=== PATIENT | female | born 1975 | race Caucasian/White ===

== ENCOUNTER → 2017-02-03 | Outpatient (CLI) | payer OTHER ==
--- NOTE | 2017-02-03 15:45 | RAD ---
Focused sonographic evaluation of the palpable abnormality overlying the left hip 02/03/2017 Indication: Palpable abnormality overlying left hip Discussion: Focus ultrasound evaluation of the soft tissues overlying the left lateral hip in the area of palpable abnormality as indicated by the patient was performed. Static images were submitted to PACS. No focal abnormality is detected. No mass or abnormal fluid collection is seen. No other focal sonographic abnormality was identified. Impression: No sonographic abnormality is identified
== END | disposition home or self-care (01) ==
LOC: US 14:54
PROVIDERS: ATTEND Surgery
DX: D17.79 Benign lipomatous neoplasm of other sites (principal)
CPT/HCPCS: 76882

== ENCOUNTER → 2017-02-15 | Outpatient (CLI) | payer OTHER ==
[~2017-02-15] MED LIST: CYCL10TA2 PO; GADOBUTROL 10 MMOL/10 ML VIAL IV ONE; LEVO137T2 PO; PANT40TA3 PO
--- NOTE | 2017-02-15 14:23 | KCIC ---
MR of the left proximal thigh with and without contrast HISTORY: Tender left thigh mass for years. TECHNIQUE: Surface markers placed at the area of concern at the lateral proximal thigh. Routine multiplanar sequences were obtained through the area of interest. Images obtained before and after intravenous contrast. FINDINGS: There is no evidence of a soft tissue mass, fluid collection, soft tissue edema or abnormal contrast enhancement. No evidence of an encapsulated subcutaneous lipoma. Muscle tissue is intact. The visualized bones are intact. No significant hip joint effusion. Mild signal within the left gluteus minimus tendon attachment, with minimal surrounding fluid signal, compatible with tendinosis. No high-grade tear. The gluteus minimus tendon is intact, but demonstrates minimal surrounding fluid as well. Hamstring tendinosis at the attachment. IMPRESSION: 1. No evidence of soft tissue mass or fluid collection at the area of concern, at the lateral proximal thigh. 2. Gluteus minimus and medius tendinosis. Electronically signed by: Bunny Avila MD (02/15/2017 2:19 PM) [facility] [place]-KCIC2
== END | disposition home or self-care (01) ==
LOC: KCIC MRI 12:20
PROVIDERS: ATTEND Surgery
DX: M76.02 Gluteal tendinitis, left hip (principal)
CPT/HCPCS: 73720; A9585

== ENCOUNTER → 2017-04-22 | Outpatient (CLI) | payer OTHER | END | disposition home or self-care (01) | LOC: MAMMO 08:27 | DX: Z12.31 Encounter for screening mammogram for malignant neoplasm of breast (principal) | CPT/HCPCS: 77063; 77067 ==

== ENCOUNTER 2017-05-30 07:34 | Emergency (ER) | payer OTHER ==
[2017-05-30] MEDS: FLUORESCEIN OPHTH TEST STRIP. OD (08:38)
[2017-05-30] MEDS: TETRACAINE 0.5% OPHTH SOLUTION 4ML BOTTLE. OD (08:38)
== END 2017-05-30 09:12 | disposition home or self-care (01) ==
LOC: ER 07:34
DX: H10.9 Unspecified conjunctivitis (principal); Z88.5 Allergy status to narcotic agent; Z88.8 Allergy status to other drugs, medicaments and biological substances; Z91.041 Radiographic dye allergy status
CPT/HCPCS: 99283

== ENCOUNTER 2018-12-17 08:58 | Emergency (ER) | payer OTHER ==
[~2018-12-17] VITALS: Ht 162.6 cm; Wt 81.6 kg
[~2018-12-17 08:58] MED LIST changes: +ERYT1OIN6 OP; -GADOBUTROL 10 MMOL/10 ML VIAL IV ONE; -PANT40TA3 PO; +PANT40TA77 PO; +PROP10DR3 EACHEYE
[2018-12-17] MEDS ORDERED: HYDR-3164 PO (09:13)
[2018-12-17] MEDS ORDERED: ORPH100T PO (09:13)
--- NOTE | 2018-12-17 09:13 | PHYS DOC ---
Past Medical History Past Medical History: GERD Past Surgical History: , Hysterectomy, Oophorectomy Additional Past Surgical Histo: thyroid Alcohol Use: None Drug Use: None Adult General Chief Complaint Chief Complaint: LOWER BACK PAIN OR INJURY HPI HPI Patient is a 43 year old female who presents with her lower back pain that started this morning. 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 Patient denies injury or doing anything abnormal yesterday while at work. Patient rates her pain a 6 out of 10 and is a cramping tightness . Patient states she took Aleve at 5:00 this morning. Review of Systems Review of Systems Musculoskeletal: back pain or joint pain [] All other systems were reviewed and found to be within normal limits, except as documented in this note. Allergies Allergies Allergies Coded Allergies Type Severity Reaction Last Updated Verified codeine Allergy Intermediate 02/15/17 Yes povidone-iodine Allergy Intermediate 02/15/17 Yes soap Allergy Intermediate 02/15/17 Yes Physical Exam Physical Exam Constitutional: Well developed, well nourished, no acute distress, non-toxic appearance. [] Neck: Normal range of motion, no tenderness, supple, no stridor. [] Skin: Warm, dry, no erythema, no rash. [] Back: No tenderness, no CVA tenderness. [] Extremities: No tenderness, no cyanosis, no clubbing, ROM intact, no edema. [] Neurologic: Alert and oriented X 3, normal motor function, normal sensory function, no focal deficits noted. [] Psychologic: Affect normal, judgement normal, mood normal. Normal Physical Exam [] EKG EKG [] Radiology/Procedures Radiology/Procedures [] Course & Med Decision Making Course & Med Decision Making Alert and oriented. Patient is ambulatory with a steady gait. Patient is to bend over as she walks due to pain but she can stand straight up. Denies any numbness or tingling. There is no tenderness to her lower back worse focal spiny tenderness with palpation. No swelling or deformity or bruising to her back. Patient denies any loss of bowel or bladder. Patient denies any radiation of the pain. Patient states she does have sciatica on the right side but has not is bothering her today. Speaks in full clear sentences. Patient is given IM orphenadrine, Toradol and [place]. I will send her home with orphenadrine and [place]. Patient follow-up with primary care provider. Allan Disclaimer Allan Disclaimer This electronic medical record was generated, in whole or in part, using a voice recognition dictation system. Departure Departure Impression: Primary Impression: Low back pain Disposition: HOME, SELF-CARE Condition: STABLE Referrals: BAMBI UMANA MD (PCP) Patient Instructions: Back Pain, Adult, Low Back Strain with Rehab-SportsMed Additional Instructions: Take medications as prescribed. Follow up with primary care provider. Use heating pad and or ice. Scripts Orphenadrine Citrate (ORPHENADRINE CITRATE) 100 Mg Tablet.er 1 TAB PO BID, #30 TAB Prov: ANTONIO SNIDER APRN 12/17/18 Hydrocodone/Apap 5-325 (NORCO 5-325 TABLET) 1 Each Tablet 1 TAB PO PRN Q6HRS PRN for PAIN, #15 TAB 0 Refills Prov: ANTONIO SNIDER APRN 12/17/18 Problem Qualifiers Primary Impression: Low back pain Chronicity: acute Back pain laterality: bilateral Sciatica presence: without sciatica Qualified Codes: M54.5 - Low back pain ANTONIO SNIDER APRN Dec 17, 2018 09:13
[2018-12-17] MEDS ORDERED: KETOROLAC 60 MG/2 ML VIAL. IM ONE (09:15)
[2018-12-17] MEDS ORDERED: HYDROcodone/APAP 5/325MG 1 TAB TABLET PO ONE (09:15)
[2018-12-17] MEDS ORDERED: ORPHENADRINE CITRATE 60 MG/2 ML VIAL. IM ONE (09:15)
[2018-12-17 09:33] VITALS: BP 166/103
== END 2018-12-17 09:33 | disposition home or self-care (01) ==
LOC: ER 08:58
DX: M54.5 Low back pain (principal); K21.9 Gastro-esophageal reflux disease without esophagitis; Z90.710 Acquired absence of both cervix and uterus; Z90.722 Acquired absence of ovaries, bilateral; Z88.5 Allergy status to narcotic agent; Z88.8 Allergy status to other drugs, medicaments and biological substances
CPT/HCPCS: 96372; 99284; J1885; J2360

== ENCOUNTER → 2019-02-01 | Outpatient (CLI) | payer OTHER ==
[~2019-02-01] MED LIST changes: +HYDR-3164 PO; +ORPH100T PO
--- NOTE | 2019-02-01 17:08 | KCIC ---
MR of the right shoulder HISTORY: Right shoulder pain, chronic. TECHNIQUE: Routine multiplanar sequences are obtained. FINDINGS: The acromioclavicular joint is mildly degenerative. Mild fluid within the acromioclavicular joint. Rotator cuff tendinosis. Small linear defect within the supraspinatus tendon insertion compatible with a small concealed intrasubstance tear. No surface rupture or retraction of the rotator cuff. Mild subdeltoid bursal fluid. No significant glenohumeral joint effusion. Small tear of the posterosuperior labrum. Biceps tendon intact other than mild tendinosis.. No acute fracture. No aggressive bone destruction. No acute soft tissue abnormality. IMPRESSION: 1. Rotator cuff tendinosis. 2. Mild acromioclavicular joint degenerative disease with mild undersurface mass effect. 3. Posterosuperior labral tear. Electronically signed by: Bunny Avila MD (02/01/2019 5:05 PM) [facility]-KCIC2
== END | disposition home or self-care (01) ==
LOC: KCIC MRI 15:06
PROVIDERS: ATTEND Orthopaedic Surgery
DX: S43.491A Other sprain of right shoulder joint, initial encounter (principal); X58.XXXA Exposure to other specified factors, initial encounter; Y93.89 Activity, other specified; Y92.89 Other specified places as the place of occurrence of the external cause; Y99.8 Other external cause status; Z90.710 Acquired absence of both cervix and uterus; Z90.89 Acquired absence of other organs
CPT/HCPCS: 73221

== ENCOUNTER 2019-03-02 06:11 | Day surgery (SDC) | payer OTHER ==
[~2019-03-02] VITALS: Ht 162.6 cm; Wt 83.5 kg
[~2019-03-02 06:11] MED LIST changes: +AMOX500C PO; +PANT20TA2 PO
[2019-03-02] MEDS ORDERED: EPINEPHrine VIAL 30 MG/30 ML VIAL ONE (06:57)
[2019-03-02] MEDS ORDERED: LIDOCAINE 1% PF 2 ML VIAL. ID PRN (07:00)
[2019-03-02] MEDS ORDERED: fentaNYL PF VIAL 100 MCG/2 ML VIAL IV PRN (07:00)
[2019-03-02] MEDS ORDERED: IV RINGERS,LACTATED 1000ML 1,000 ML IV SCH (07:00)
[2019-03-02] MEDS ORDERED: ONDANSETRON PF 4 MG/2 ML VIAL. IV PRN (07:00)
[2019-03-02] MEDS ORDERED: HYDROmorphone 2 MG/ML VIAL IV PRN (07:00)
[2019-03-02] MEDS ORDERED: PROCHLORPERAZINE 10 MG/2 ML VIAL. IV PRN (07:00)
[2019-03-02] MEDS ORDERED: ROPIVacaine 0.5% PF 20 ML VIAL. ONE (07:03)
[2019-03-02] MEDS ORDERED: MIDAZOLAM HCL/PF 2 MG/2 ML VIAL. ONE (07:05)
[2019-03-02] MEDS ORDERED: fentaNYL PF VIAL 100 MCG/2 ML VIAL ONE ×2 (07:06→09:27)
[2019-03-02] MEDS ORDERED: PROPOFOL 20 ML IV ONE (07:22)
[2019-03-02] MEDS ORDERED: PHENYLEPHRINE in 0.9% NACL PF 1 MG/10 ML SYRINGE. IV ONE (07:22)
[2019-03-02] MEDS ORDERED: ONDANSETRON PF 4 MG/2 ML VIAL. ONE (07:22)
[2019-03-02] MEDS ORDERED: LIDOCAINE 2% PF 5 ML VIAL. ONE (07:22)
[2019-03-02] MEDS ORDERED: GLYCOPYRROLATE 1 MG/5 ML VIAL. ONE ×2 (07:22→08:36)
[2019-03-02] MEDS ORDERED: DEXAMETHASONE SOD PHOS 4 MG/ML VIAL ONE (07:22)
[2019-03-02] MEDS ORDERED: ROCURONIUM 50 MG/5 ML VIAL. ONE (07:26)
[2019-03-02] MEDS ORDERED: ceFAZolin 2GM PREMIX 2 GM/50 ML BAG IV ONE (08:00)
[2019-03-02] MEDS ORDERED: KETOROLAC 30 MG/ML VIAL. ONE (08:35)
[2019-03-02] MEDS ORDERED: NEOSTIGMINE METHYLSULFATE 5 MG/5 ML SYRINGE. ONE (08:37)
[2019-03-02] MEDS ORDERED: SEVOFLURANE 61 TO 120 MINUTES. IH ONE (08:39)
[2019-03-02] MEDS ORDERED: BUPIVACAINE-EPI 0.5%-1:200000 MPF 30 ML VIAL. ONE (08:55)
[2019-03-02] MEDS ORDERED: OXYC1TAB22 PO (09:28)
--- NOTE | 2019-03-02 09:30 | DISCH ---
DISCHARGE INSTRUCTIONS Condition on Discharge Condition on Discharge: Stable Activity After Discharge Activity Instructions for Disc: Other, see below (sling for comfort may use arm as symptomatically tolerated, avoid laying on the shoulder due to symptomatic aggravation) Diet after Discharge Diet after Discharge: Regular Wound Incision Care Wound/Incision Care: Change dressing (remove dressing in 2 days may then shower no soaking until sutures removed) Community/Resources/Services Services at Discharge: PT EVALUATE & TREAT (we will hold off on physical therapy formally until her postop evaluation, gentle use and stretching of her arm in the meantime as I discussed with her ) Contacting the after DC Call your doctor for: Concerns you may have Follow-Up Follow up with: Dr. Rouse 10 days AUREA ROUSE MD Mar 02, 2019 09:30
[2019-03-02] MEDS: fentaNYL PF VIAL 100 MCG/2 ML VIAL IV PRN ×2 (09:32→09:44)
--- NOTE | 2019-03-02 09:41 | PDOC4 ---
Operative Note Operative Note Date of surgery: 03/02/2019 Preoperative diagnosis: Refractory acromioclavicular joint pain right shoulder recurrent postinjection Postoperative diagnosis: Same plus severe bursal irritation in the subacromial area and superior labral fraying with a partial thickness subscapularis tear superiorly Operative procedure: Right shoulder arthroscopy distal clavicle excision subacromial decompression and debridement of superior labral fraying and part ial-thickness tear subscapularis Surgeon: Padma Assist: Kory Almanzar certified surgical manager Anesthesia: Gen. plus scalene block Estimated blood loss: 50 mL Complications: None Operative indications: Please see my preoperative clinic note for detailed operative indications and note that Kalyn has undergone multiple injections for right acromioclavicular joint pain and degenerative change with recurrence each time and lesser and lesser timeframes where the injection is effective. I had gone over with her the more definitive approach of distal clavicle excision and the initial pain that is expected with that procedure the possibility of some ongoing pain for several weeks until it generally resolves possibility of incomplete relief of her pain nerve or blood vessel damage infection medical or other anesthetic complications among others and the fact that we would certainly address any other pathological conditions at the time of arthroscopy she agrees to proceed with surgical evaluation and treatment Operative text: Patient was identified procedure verified patient placed in the supine position on the operating table. After adequate amounts of general anesthesia plus a pre-existing scalene block were obtained, patient was placed in the decubitus position right side up all bony prominences were well-padded and the right shoulder was examined under anesthesia found to have full range of motion and no instability. The right shoulder was then prepped and draped in standard sterile fashion placed in the arthroscopic arm gamez with a total of 10 pounds of traction and after timeout was performed patient procedure identified and verified a standard posterior portal was established an anterior portal established using spinal needle localization and the shoulder joint was systematically examined. She was noted to have superior labral fraying constituting a type I SLAP tear which was debrided back to stable tissue. There was no separation of the biceps and superior labral insertion. She did have a partial-thickness tear of the subscapularis superiorly which was trimmed back to stable tissue and involved proximally 10-15% of the superior insertion there was no biceps instability the remainder of the rotator cuff insertion was intact she had a normal bare area of the humerus and had a sub-labral foramen normal anatomy with normal capsule ligament structures noted. Subacromial space was then entered she was found to have significant irritation of her bursal large anterior acromial spur which was trimmed back to a type I acromion using cutting block technique. Distal clavicle was narrowed and degenerative and was excised 1 cm to allow an adequate joint space surrounding joint capsule was preserved bony fragments were removed underlying rotator cuff showed some mild irritation but no evidence of any significant defect. The shoulder was drained of arthroscopic fluid portals closed with nylon suture sterile dressings were applied she was placed in a sling returned to recovery room in stable condition having tolerated procedure well. Kory Almanzar certified surgical recovery assistant was present for the procedure assisted in the prepping draping positioning as well as skin closure AUREA MATHEW MD Mar 02, 2019 09:41
[2019-03-02] MEDS ORDERED: MORPHINE SULFATE 2 MG/ML VIAL. ONE (09:45)
[2019-03-02] MEDS: MORPHINE SULFATE 2 MG/ML VIAL. IV PRN ×2 (09:47→09:59)
[2019-03-02] MEDS ORDERED: oxyCODONE/APAP 10/325 1 TAB TABLET PO ONE (10:00)
[2019-03-02 10:05] VITALS: BP 116/63
== END 2019-03-02 11:13 | disposition home or self-care (01) ==
LOC: SURG 06:11
PROVIDERS: ATTEND Orthopaedic Surgery
DX: S46.011A Strain of muscle(s) and tendon(s) of the rotator cuff of right shoulder, initial encounter (principal); M25.511 Pain in right shoulder; E89.0 Postprocedural hypothyroidism; K21.9 Gastro-esophageal reflux disease without esophagitis; Z98.890 Other specified postprocedural states; Z88.6 Allergy status to analgesic agent; Z90.710 Acquired absence of both cervix and uterus; Z79.2 Long term (current) use of antibiotics; Z91.041 Radiographic dye allergy status; Z85.850 Personal history of malignant neoplasm of thyroid; Z91.048 Other nonmedicinal substance allergy status; X58.XXXA Exposure to other specified factors, initial encounter; Y93.89 Activity, other specified; Y92.89 Other specified places as the place of occurrence of the external cause; Y99.8 Other external cause status
CPT/HCPCS: 29823; 29824; 64415; A7015; C1713; J0171; J0696; J1100; J1885; J2001; J2250; J2270; J2405; J2704; J2710; J2795; J3010; J3490; J2370

== ENCOUNTER 2019-06-13 10:36 | Emergency (ER) | payer OTHER ==
[~2019-06-13] VITALS: Ht 162.6 cm; Wt 84.0 kg
[~2019-06-13 10:36] MED LIST changes: +OXYC1TAB22 PO
--- NOTE | 2019-06-13 11:25 | EKG ---
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
[2019-06-13] MEDS ORDERED: KETOROLAC 30 MG/ML VIAL. IVP ONE (11:30)
[2019-06-13 11:35] LABS: BASO # 0.1 x10^3/uL (0.0-0.2); BASO % 1 % (0-3); EOS % 0 % (0-3); HEMATOCRIT 47.5 % (36.0-47.0); HEMOGLOBIN 16.2 g/dL (12.0-15.5); LYMPH # 2.1 x10^3/uL (1.0-4.8); LYMPH % 21 % (24-48); MEAN CORPUSCULAR HEMOGLOBIN 33 pg (25-35); MEAN CORPUSCULAR HGB CONC 34 g/dL (31-37); MEAN CORPUSCULAR VOLUME 96 fL (79-100); MONO # 0.6 x10^3/uL (0.0-1.1); MONO % 6 % (0-9); NEUT % 72 % (31-73); PLATELET COUNT 400 x10^3/uL (140-400); RED BLOOD COUNT 4.97 x10^6/uL (3.50-5.40); RED CELL DISTRIBUTION WIDTH 12.8 % (11.5-14.5); WHITE BLOOD COUNT 9.7 x10^3/uL (4.0-11.0)
--- NOTE | 2019-06-13 11:35 | PHYS DOC ---
Past Medical History Past Medical History: GERD, Sciatica Additional Past Medical Histor: THYROID CANCER Past Surgical History: , Hysterectomy, Oophorectomy Additional Past Surgical Histo: thyroid.D&C,BREAST REDUCTION,RIGHT SHOULDER, Smoking Status: Never Smoker Alcohol Use: None Drug Use: None General Adult EDM: Chief Complaint: CHEST PAIN HPI: HPI: Patient is a 44 year old female with history of GERD and hypothyroidism after thyroid cancer who presents with complaining of right-sided chest pain. Patient states she felt sudden onset of sharp right lower chest and upper abdomen pain with radiation to epigastric and right upper chest without shortness of breath, nausea, dizziness, palpitation, fever and chills, cough and congestion patient. Patient rated her pain 8/10 and stated pain started about 30 minutes prior to arrival to ER. Patient denies history of the same pain, diarrhea and constipation, urinary symptoms, . Review of Systems: Review of Systems: Constitutional: Denies fever or chills. [] Eyes: Denies change in visual acuity. [] HENT: Denies nasal congestion or sore throat. [] Respiratory: Denies cough or shortness of breath. [] Cardiovascular: Denies chest pain or edema. [] GI: Denies abdominal pain, nausea, vomiting, bloody stools or diarrhea. [] : Denies dysuria. [] Musculoskeletal: Denies back pain or joint pain. [] Integument: Denies rash. [] Neurologic: Denies headache, focal weakness or sensory changes. [] Endocrine: Denies polyuria or polydipsia. [] Lymphatic: Denies swollen glands. [] Psychiatric: Denies depression or anxiety. [] Heart Score: HEART Score for Chest Pain: HEART Score for Chest Pain Response (Comments) Value History Slighlty/Non-Suspicious 0 ECG Nonspecific Repolarizatio 1 Age < 45 0 Risk Factors 1 or 2 Risk Factors 1 Troponin < Normal Limit 0 Total 2 Risk Factors: Risk Factors: DM, Current or recent (<one month) smoker, HTN, HLP, family history of CAD, obesity. Risk Scores: Score 0 - 3: 2.5% MACE over next 6 weeks - Discharge Home Score 4 - 6: 20.3% MACE over next 6 weeks - Admit for Clinical Observation Score 7 - 10: 72.7% MACE over next 6 weeks - Early Invasive Strategies Current Medications: Current Medications Medications (Trade) Dose Ordered Sig/Michelle Start Time Stop Time Status Last Admin Dose Admin Ketorolac Tromethamine (Toradol 30mg Vial) 30 mg 1X ONCE 06/13/19 11:30 06/13/19 11:31 DC Allergies: Allergies: Allergies Coded Allergies Type Severity Reaction Last Updated Verified codeine Allergy Intermediate 03/02/19 Yes povidone-iodine Allergy Intermediate 03/02/19 Yes soap Allergy Intermediate 03/02/19 Yes Physical Exam: PE: Constitutional: Well developed, well nourished, mild distress, non-toxic appearance. [] HENT: Normocephalic, atraumatic. Eyes: PERRLA, EOMI, conjunctiva normal, no discharge. [] Neck: Normal range of motion, no tenderness, supple, no stridor. [] Cardiovascular:Heart rate regular rhythm, no murmur [] Lungs & Thorax: Bilateral breath sounds clear to auscultation [] Abdomen: Bowel sounds normal, soft, no tenderness, no masses, no pulsatile ma sses. [] Skin: Warm, dry, no erythema, no rash. [] Back: No tenderness, no CVA tenderness. [] Extremities: No tenderness, no cyanosis, no clubbing, ROM intact, no edema. [] Neurologic: Alert and oriented X 3, no focal deficits noted. [] Psychologic: Affect normal, judgement normal, mood normal. [] Current Patient Data: Vital Signs: Vital Signs Date Time Temp Pulse Resp B/P (MAP) Pulse Ox O2 Delivery O2 Flow Rate FiO2 06/13/19 10:59 98.2 87 22 149/101 (117) 100 Room Air 98.2 EKG: EKG: EKG interpreted by me. EKG at 1046 showed normal sinus rhythm at rate of 85, left atrial abnormality, left axis deviation, left anterior fascicular block, incomplete right bundle branch block, no acute ST and T wave elevation. Radiology/Procedures: Radiology/Procedures: [facility] [address] [place], [place] [id number] IMAGING REPORT Signed PATIENT: DELLA ADAMS ACCOUNT: [id number] : 1975 LOCATION: ER AGE: 44 SEX: F EXAM STATUS: REG ER ORD. PHYSICIAN: OLEGARIO FAIRCHILD MD REASON: Right side chest pain PROCEDURE: PORTABLE CHEST 1V Study: CR PORTABLE CHEST 1V Indication: Right-sided chest pain. Comparison: None. Findings: Within normal limits cardiomediastinal silhouette and natalie. No pneumothorax, lobar consolidation or pleural effusion. Probable sequela of distal clavicular resection on the right. Surgical clips projecting at the lower neck approaching the thoracic inlet. Impression: No acute radiographic abnormality of the chest. Electronically signed by: VIOLET GALVIN MD (06/13/2019 11:33 AM) [id number] DICTATED and SIGNED BY: VIOLET GALVIN MD DATE: 06/13/19 1133 [facility] [address] [place] [address] IMAGING REPORT Signed PATIENT: DELLA ADAMS ACCOUNT: [id number] : 1975 LOCATION: ER AGE: 44 SEX: F EXAM STATUS: REG ER ORD. PHYSICIAN: OLEGARIO FAIRCHILD MD REASON: Right-sided chest pain PROCEDURE: ABDOMEN LTD Limited abdomen ultrasound comparison: None. FINDINGS: Pancreas is poorly visualized due to bowel gas. Inferior cava is identified. Liver is mildly enlarged at 19.9 cm. Coarse hepatic echogenicity, suggesting steatosis. No obvious liver lesion but steatosis does limit detection. Gallbladder wall is borderline thickened at 3.3 mm, but patient was not fasting and gallbladder is somewhat contracted. No definite gallstone. No significant biliary ductal dilatation. The right kidney measures 10.1 cm longitudinal without hydronephrosis or focal lesion. No significant ascites is seen. IMPRESSION: 1. Hepatomegaly with steatosis. 2. Limited gallbladder evaluation due to nonfasting state. Borderline gallbladder wall thickening, may just be due to lack of distention. No definite gallstone. Electronically signed by: Bunny Avila MD (06/13/2019 12:19 PM) [facility] DICTATED and SIGNED BY: BUNNY AVILA MD DATE: 06/13/19 1211 Course & Med Decision Making: Course & Med Decision Making Pertinent Labs and Imaging studies reviewed. (See chart for details) Discharge: I've spoken with the patient and/or caregivers. I've explained the patient's condition, diagnosis and treatment plan based on information available to me at this time. I've answered the patient's and/or caregivers questions and addressed any concerns. The patient and/or caregivers have a good understanding the patient's diagnosis, condition and treatment plan as can be expected at this point. Vital signs have been stabilized. The patient's condition is stable for discharge from the emergency department. The patient will pursue further outpatient evaluation with her primary care provider or other designated consulting physician as outlined in the discharge instructions. Patient and/or caregivers are agreeable to this plan of care and follow-up instructions have been explained in detail. The patient and/or caregivers have received these instructions in written format and expressed unde rstanding of these discharge instructions. The patient and her caregivers are aware that if any significant change in condition or worsening of symptoms should prompt him to immediately return to this of the closest emergency department. If an emergent department is not readily available I would encourage him to call 911. Allan Disclaimer: Allan Disclaimer: This electronic medical record was generated, in whole or in part, using a voice recognition dictation system. Departure Departure Impression: Primary Impression: Right-sided chest pain Additional Impression: GERD (gastroesophageal reflux disease) Qualified Codes: K21.9 - Gastro-esophageal reflux disease without esophagitis Disposition: HOME, SELF-CARE (At 1314) Condition: IMPROVED Referrals: BAMBI UMANA MD (PCP) Patient Instructions: Chest Wall Pain, Diet for Gastroesophageal Reflux Disease, Adult, Gastroesophageal Reflux Disease, Adult Additional Instructions: Drink plenty of liquids Follow-up with your primary care physician in 3-5 days Return to ER if not getting better May take [id number]-[id number] Pepcid or antiacid Thank you for visiting [facility]. We appreciate you trusting us with your care. If any additional problems come up don't hesitate to return to visit us. Please follow up with your primary care provider so they can plan additional care if needed and know about the problem that you had. If symptoms worsen come back to the Emergency Department. Any concerning symptoms that start such as chest pain, shortness of air, weakness or numbness on one side of the body, running high fevers or any other concerning symptoms return to the ER. OLEGARIO FAIRCHILD MD Jun 13, 2019 11:35
[2019-06-13 11:36] LABS: CREATININE 0.8 mg/dL (0.6-1.0); GFR 77.9; POTASSIUM 4.2 mmol/L (3.5-5.1)
[2019-06-13 11:42] LABS: ALBUMIN 4.2 g/dL (3.4-5.0); TOTAL BILIRUBIN 0.6 mg/dL (0.2-1.0); TOTAL PROTEIN 8.3 g/dL (6.4-8.2)
[2019-06-13 12:17] VITALS: BP 129/87
--- NOTE | 2019-06-13 12:22 | RAD ---
Limited abdomen ultrasound comparison: None. FINDINGS: Pancreas is poorly visualized due to bowel gas. Inferior cava is identified. Liver is mildly enlarged at 19.9 cm. Coarse hepatic echogenicity, suggesting steatosis. No obvious liver lesion but steatosis does limit detection. Gallbladder wall is borderline thickened at 3.3 mm, but patient was not fasting and gallbladder is somewhat contracted. No definite gallstone. No significant biliary ductal dilatation. The right kidney measures 10.1 cm longitudinal without hydronephrosis or focal lesion. No significant ascites is seen. IMPRESSION: 1. Hepatomegaly with steatosis. 2. Limited gallbladder evaluation due to nonfasting state. Borderline gallbladder wall thickening, may just be due to lack of distention. No definite gallstone. Electronically signed by: Bunny Avila MD (06/13/2019 12:19 PM) [facility]
[2019-06-13] MEDS ORDERED: FAMOTIDINE 20 MG/2 ML VIAL IVP ONE (12:45)
== END 2019-06-13 13:30 | disposition home or self-care (01) ==
LOC: ER 10:36
DX: K21.9 Gastro-esophageal reflux disease without esophagitis (principal); R07.89 Other chest pain; R10.32 Left lower quadrant pain; R10.11 Right upper quadrant pain; Z85.850 Personal history of malignant neoplasm of thyroid; Z90.710 Acquired absence of both cervix and uterus; Z90.89 Acquired absence of other organs; Z98.890 Other specified postprocedural states; Z88.5 Allergy status to narcotic agent; Z88.1 Allergy status to other antibiotic agents; Z88.8 Allergy status to other drugs, medicaments and biological substances
CPT/HCPCS: 36415; 71045; 76705; 80053; 83690; 83735; 84484; 85025; 85379; 93005; 96374; 96375; 99285; J1885; J3490

== ENCOUNTER 2019-07-28 15:32 | Emergency (ER) | payer OTHER ==
[~2019-07-28] VITALS: Ht 162.6 cm; Wt 84.1 kg
[~2019-07-28 15:32] MED LIST changes: -LEVO137T2 PO; +LEVO137T44 PO
[2019-07-28] MEDS ORDERED: IV NORMAL SALINE 1000ML BAG 1,000 ML IV ONE (15:45)
[2019-07-28] MEDS ORDERED: IBUPROFEN 200 MG TABLET. PO ONE (15:45)
[2019-07-28] MEDS ORDERED: ACETAMINOPHEN 500 MG TABLET PO ONE (15:45)
[2019-07-28 16:00] LABS: BILIRUBIN,URINE NEGATIVE (NEG); CLARITY,URINE CLOUDY; COLOR,URINE YELLOW; NITRITE,URINE NEGATIVE (NEG); PH,URINE 6.5 (<5.0-8.0); PROTEIN,URINE 100 mg/dL (NEG-TRACE)
[2019-07-28 16:09] LABS: BACTERIA,URINE MODERATE /HPF (0-FEW); SQUAMOUS EPITHELIAL CELL,UR MANY /LPF; WBC,URINE TNTC /HPF (0-4)
[2019-07-28] MEDS ORDERED: cefTRIAXone IV Push 1 GM VIAL. IVP ONE (16:15)
[2019-07-28 17:27] LABS: BASO # 0.1 x10^3/uL (0.0-0.2); BASO % 1 % (0-3); EOS % 0 % (0-3); HEMATOCRIT 41.1 % (36.0-47.0); HEMOGLOBIN 14.5 g/dL (12.0-15.5); LYMPH # 1.1 x10^3/uL (1.0-4.8); LYMPH % 9 % (24-48); MEAN CORPUSCULAR HEMOGLOBIN 34 pg (25-35); MEAN CORPUSCULAR HGB CONC 35 g/dL (31-37); MEAN CORPUSCULAR VOLUME 96 fL (79-100); MONO % 8 % (0-9); NEUT # 10.1 x10^3/uL (1.8-7.7); NEUT % 83 % (31-73); PLATELET COUNT 352 x10^3/uL (140-400); RED BLOOD COUNT 4.27 x10^6/uL (3.50-5.40); RED CELL DISTRIBUTION WIDTH 12.5 % (11.5-14.5); WHITE BLOOD COUNT 12.2 x10^3/uL (4.0-11.0)
--- NOTE | 2019-07-28 17:30 | RAD ---
Exam: CT of abdomen and pelvis without contrast INDICATION: Flank pain TECHNIQUE: Sequential axial images through the abdomen and pelvis obtained without IV contrast. Sagittal and coronal reformatted images were reconstructed from the axial data and reviewed. Comparisons: None FINDINGS: Heart size is normal. No pericardial effusion. Visualized lung bases are clear. No pleural effusion. Evaluation solid organs is limited secondary to noncontrast technique. Diffuse hepatic steatosis. Spleen, pancreas, gallbladder and adrenals are unremarkable. No perinephric inflammation or hydronephrosis. No renal or ureteral calculi are identified. Bladder is distended and appears thin-walled. Prostate is not enlarged. Large and small bowel are unremarkable. Appendix is not identified. No free intra-abdominal air or fluid. No obstruction. Abdominal aorta has a normal course and caliber. No enlarged abdominal lymph nodes are identified. No suspicious osseous lesions or acute fractures. IMPRESSION: 1. No renal or ureteral calculi. No evidence for obstructive uropathy. 2. Mild fat stranding surrounding the left kidney. Correlate with urinalysis for infection. 3. Diffuse hepatic steatosis. Exposure: One or more of the following in the visualized dose reduction techniques were utilized for this examination: 1. Automated exposure control 2. Adjustment of the MA and/or KV according to patient size 3. Use of iterative of reconstructive technique Electronically signed by: Job Prakash MD (07/28/2019 5:26 PM) [id number]
--- NOTE | 2019-07-28 17:35 | PHYS DOC ---
Past Medical History Past Medical History: GERD, Sciatica Additional Past Medical Histor: THYROID CANCER Past Surgical History: , Hysterectomy, Oophorectomy Additional Past Surgical Histo: thyroid.D&C,BREAST REDUCTION,RIGHT SHOULDER, Smoking Status: Never Smoker Alcohol Use: None Drug Use: None General Adult EDM: Chief Complaint: FLANK PAIN HPI: HPI: Patient is a 44 year old female who presented to ER today for evaluation of fever and chill, bilateral flank pain, frequent urination with burning sensation seen last . Patient denies any headache, no cough, no trouble breathing. 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 Patient does have family history of kidney stone. Patient denies any chest pain or any trouble breathing. Patient went to see her doctor couple days ago, She had a urine sample to be tested but does not know the result yet. Patient is not on any antibiotic at this time. Patient took 1 g of Tylenol 1 hour before arrival here. Review of Systems: Review of Systems: Constitutional: Positive for fever or chills. [] Eyes: Denies change in visual acuity. [] HENT: Denies nasal congestion or sore throat. [] Respiratory: Denies cough or shortness of breath. [] Cardiovascular: Denies chest pain or edema. [] GI: Positive for flank pain, no nausea, vomiting, bloody stools or diarrhea. [] : Denies dysuria. [] Musculoskeletal: Denies back pain or joint pain. [] Integument: Denies rash. [] Neurologic: Denies headache, focal weakness or sensory changes. [] Endocrine: Denies polyuria or polydipsia. [] Lymphatic: Denies swollen glands. [] Psychiatric: Denies depression or anxiety. [] Heart Score: Risk Factors: Risk Factors: DM, Current or recent (<one month) smoker, HTN, HLP, family history of CAD, obesity. Risk Scores: Score 0 - 3: 2.5% MACE over next 6 weeks - Discharge Home Score 4 - 6: 20.3% MACE over next 6 weeks - Admit for Clinical Observation Score 7 - 10: 72.7% MACE over next 6 weeks - Early Invasive Strategies Current Medications: Current Medications Medications (Trade) Dose Ordered Sig/Michelle Start Time Stop Time Status Last Admin Dose Admin Acetaminophen (Tylenol) 1,000 mg 1X ONCE 07/28/19 15:45 07/28/19 16:10 DC Ceftriaxone Sodium (Rocephin) 1 gm 1X ONCE 07/28/19 16:15 07/28/19 16:16 DC 07/28/19 16:19 1 GM Ibuprofen (Motrin) 600 mg 1X ONCE 07/28/19 15:45 07/28/19 15:47 DC 07/28/19 16:19 600 MG Sodium Chloride 1,000 ml @ 1,000 mls/hr 1X ONCE 07/28/19 15:45 07/28/19 16:44 DC 07/28/19 15:45 1,000 MLS/HR Allergies: Allergies: Allergies Coded Allergies Type Severity Reaction Last Updated Verified codeine Allergy Intermediate 03/02/19 Yes povidone-iodine Allergy Intermediate 03/02/19 Yes soap Allergy Intermediate 03/02/19 Yes Physical Exam: PE: Constitutional: Well developed, well nourished, no acute distress, non-toxic appearance. [] HENT: Normocephalic, atraumatic, bilateral external ears normal, oropharynx moist, no oral exudates, nose normal. [] Eyes: PERRLA, EOMI, conjunctiva normal, no discharge. [] Neck: Normal range of motion, no tenderness, supple, no stridor. [] Cardiovascular:Heart rate regular rhythm, no murmur [] Lungs & Thorax: Bilateral breath sounds clear to auscultation [] Abdomen: Bowel sounds normal, soft, no tenderness, no masses, no pulsatile masses. [] Skin: Warm, dry, no erythema, no rash. [] Back: No tenderness, no CVA tenderness. [] Extremities: No tenderness, no cyanosis, no clubbing, ROM intact, no edema. [] Neurologic: Alert and oriented X 3, normal motor function, normal sensory function, no focal deficits noted. [] Psychologic: Affect normal, judgement normal, mood normal. [] Current Patient Data: Labs: Laboratory Tests Test 07/28/19 14:45 07/28/19 15:59 Urine Collection Type Unknown Urine Color Yellow Urine Clarity Cloudy Urine pH 6.5 (<5.0-8.0) Urine Specific [place] 1.015 (1.000-1.030) Urine Protein 100 mg/dL (NEG-TRACE) Urine Glucose (UA) Negative mg/dL (NEG) Urine Ketones (Stick) Negative mg/dL (NEG) Urine Blood Moderate (NEG) Urine Nitrite Negative (NEG) Urine Bilirubin Negative (NEG) Urine Urobilinogen Dipstick 1.0 mg/dL (0.2 mg/dL) Urine Leukocyte Esterase Large (NEG) Urine RBC 11-20 /HPF (0-2) Urine WBC Tntc /HPF (0-4) Urine Squamous Epithelial Cells Many /LPF Urine Bacteria Moderate /HPF (0-FEW) Urine Mucus Marked /LPF White Blood Count 12.2 x10^3/uL (4.0-11.0) H Red Blood Count 4.27 x10^6/uL (3.50-5.40) Hemoglobin 14.5 g/dL (12.0-15.5) Hematocrit 41.1 % (36.0-47.0) Mean Corpuscular Volume 96 fL (79-100) Mean Corpuscular Hemoglobin 34 pg (25-35) Mean Corpuscular Hemoglobin Concent 35 g/dL (31-37) Red Cell Distribution Width 12.5 % (11.5-14.5) Platelet Count 352 x10^3/uL (140-400) Neutrophils (%) (Auto) 83 % (31-73) H Lymphocytes (%) (Auto) 9 % (24-48) L Monocytes (%) (Auto) 8 % (0-9) Eosinophils (%) (Auto) 0 % (0-3) Basophils (%) (Auto) 1 % (0-3) Neutrophils # (Auto) 10.1 x10^3/uL (1.8-7.7) H Lymphocytes # (Auto) 1.1 x10^3/uL (1.0-4.8) Monocytes # (Auto) 1.0 x10^3/uL (0.0-1.1) Eosinophils # (Auto) 0.0 x10^3/uL (0.0-0.7) Basophils # (Auto) 0.1 x10^3/uL (0.0-0.2) Lactic Acid Level 1.2 mmol/L (0.4-2.0) Lipase 97 U/L (73-393) Laboratory Tests 07/28/19 15:59 Vital Signs: Vital Signs Date Time Temp Pulse Resp B/P (MAP) Pulse Ox O2 Delivery O2 Flow Rate FiO2 07/28/19 16:49 82 127/77 (94) 97 Room Air 07/28/19 15:45 100.4 12 100.4 EKG: EKG: [] Radiology/Procedures: Radiology/Procedures: [][facility] [address] [place] [address] IMAGING REPORT Signed PATIENT: DELLA ADAMS ACCOUNT: [id number] : 1975 LOCATION: ER AGE: 44 SEX: F EXAM STATUS: REG ER ORD. PHYSICIAN: MARTHA SAAVEDRA DO REASON: FLANK PAIN, FEVER, HYSTERECTOMY PROCEDURE: CT ABDOMEN PELVIS WO CONTRAST Exam: CT of abdomen and pelvis without contrast INDICATION: Flank pain TECHNIQUE: Sequential axial images through the abdomen and pelvis obtained without IV contrast. Sagittal and coronal reformatted images were reconstructed from the axial data and reviewed. Comparisons: None FINDINGS: Heart size is normal. No pericardial effusion. Visualized lung bases are clear. No pleural effusion. Evaluation solid organs is limited secondary to noncontrast technique. Diffuse hepatic steatosis. Spleen, pancreas, gallbladder and adrenals are unremarkable. No perinephric inflammation or hydronephrosis. No renal or ureteral calculi are identified. Bladder is distended and appears thin-walled. Prostate is not enlarged. Large and small bowel are unremarkable. Appendix is not identified. No free intra-abdominal air or fluid. No obstruction. Abdominal aorta has a normal course and caliber. No enlarged abdominal lymph nodes are identified. No suspicious osseous lesions or acute fractures. IMPRESSION: 1. No renal or ureteral calculi. No evidence for obstructive uropathy. 2. Mild fat stranding surrounding the left kidney. Correlate with urinalysis for infection. 3. Diffuse hepatic steatosis. Exposure: One or more of the following in the visualized dose reduction techniques were utilized for this examination: 1. Automated exposure control 2. Adjustment of the MA and/or KV according to patient size 3. Use of iterative of reconstructive technique Electronically signed by: Job Booker MD (07/28/2019 5:26 PM) [id number] DICTATED and SIGNED BY: JOB BOOKER MD DATE: 07/28/19 6125 Course & Med Decision Making: Course & Med Decision Making Pertinent Labs and Imaging studies reviewed. (See chart for details) Patient is a 44-year-old female who was evaluated in ER today due to flank pain with fever and chill. Her CT scan and lab work shown evidence pyelonephritis. Patient was given IV fluids, and Rocephin IV in the ER, patient will be discharged home with a prescription for fluoroquinolone to treat pyelonephritis. Patient was instructed to follow-up with her family doctor in the next week for reevaluation. Patient is amenable to plan of care. Dragon Disclaimer: Dragon Disclaimer: This electronic medical record was generated, in whole or in part, using a voice recognition dictation system. Departure Departure Impression: Primary Impression: Acute pyelonephritis Disposition: HOME, SELF-CARE Condition: IMPROVED Referrals: BAMBI UMANA MD (PCP) Please follow-up with your family doctor next week. Patient Instructions: Fever, Pyelonephritis, Adult Additional Instructions: Thank you for visiting our Emergency Department. We appreciate you trusting us with your care. If any additional problems come up don't hesitate to return to visit us. Please follow up with your primary care provider so they can plan additional care if needed and know about the problem that you had. If symptoms worsen come back to the Emergency Department. Any concerning symptoms that start such as chest pain, shortness of air, weakness or numbness on one side of the body, running high fevers or any other concerning symptoms return to the ER. Scripts Levofloxacin (LEVAQUIN) 500 Mg Tablet 1 TAB PO DAILY for 10 Days, #10 TAB 0 Refills Prov: MARTHA SAAVEDRA DO 07/28/19 Justicifation of Admission Dx: Justifications for Admission: Justification of Admission Dx: N/A MARTHA SAAVEDRA DO Jul 28, 2019 17:34
[2019-07-28 18:10] LABS: CALCIUM 8.8 mg/dL (8.5-10.1); CREATININE 0.9 mg/dL (0.6-1.0); POTASSIUM 4.1 mmol/L (3.5-5.1)
[2019-07-28 18:14] VITALS: BP 119/74
[2019-07-28 18:15] LABS: ALBUMIN 3.7 g/dL (3.4-5.0); TOTAL BILIRUBIN 0.8 mg/dL (0.2-1.0); TOTAL PROTEIN 7.3 g/dL (6.4-8.2)
[2019-07-28] MEDS ORDERED: LEVO500T59 PO (18:45)
== END 2019-07-28 19:02 | disposition home or self-care (01) ==
LOC: ER 15:32
DX: N10 Acute pyelonephritis (principal); R50.9 Fever, unspecified; R35.0 Frequency of micturition; K21.9 Gastro-esophageal reflux disease without esophagitis; Z85.850 Personal history of malignant neoplasm of thyroid; Z90.710 Acquired absence of both cervix and uterus; Z90.89 Acquired absence of other organs; Z98.890 Other specified postprocedural states
CPT/HCPCS: 74176; 80053; 81001; 83605; 83690; 85025; 87040; 87070; 87086; 87880; 96374; 99285; J0696; J7030; U0003; 36415

== ENCOUNTER → 2019-08-28 | Outpatient (CLI) | payer OTHER ==
[~2019-08-28] MED LIST changes: +LEVO500T59 PO
--- NOTE | 2019-08-28 15:45 | RAD ---
Examination: MRI of the right shoulder without contrast HISTORY: History of right shoulder pain COMPARISON: None available Technique: Multiplanar, multisequence MR imaging of the right shoulder performed without contrast FINDINGS: The long head of the biceps tendon within the bicipital groove. The attachment of the long head the biceps tendon to the superior labral anchor grossly appears intact. The attachment of the subscapularis tendon grossly appears intact. There is moderate increased T2 signal identified in the supraspinatus, interspinous tendon likely moderate tendinosis. Small amount of fluid identified in subacromial subdeltoid bursa. No evidence of full-thickness tear is identified on this examination. Small joint effusion identified in the right shoulder joint. Mild increased T2 signal identified in the superior labrum could be a small SLAP tear. Moderate degenerative changes acromioclavicular joint. The acromion is type II. The muscle bulk grossly appears unremarkable. IMPRESSION: 1. Moderate rotator cuff tendinosis. Small amount of fluid identified in the subacromial /subdeltoid bursa could be bursitis. Recommend MRI arthrogram to exclude occult full-thickness tear. 2. Mild increased T2 signal identified in the superior labrum likely a small SLAP tear. 3. Mild shoulder joint effusion. Electronically signed by: Josh Barron MD (08/28/2019 3:42 PM) [id number]
== END | disposition home or self-care (01) ==
LOC: MRI 14:30
PROVIDERS: ATTEND Orthopaedic Surgery
DX: M19.011 Primary osteoarthritis, right shoulder (principal); M25.411 Effusion, right shoulder; M75.81 Other shoulder lesions, right shoulder; M75.101 Unspecified rotator cuff tear or rupture of right shoulder, not specified as traumatic; Z98.890 Other specified postprocedural states
CPT/HCPCS: 73221

== ENCOUNTER → 2019-09-13 | Outpatient (CLI) | payer OTHER ==
[2019-09-13 16:49] LABS: BASO # 0.1 x10^3/uL (0.0-0.2); BASO % 1 % (0-3); EOS # 0.1 x10^3/uL (0.0-0.7); EOS % 1 % (0-3); HEMOGLOBIN 14.5 g/dL (12.0-15.5); LYMPH % 32 % (24-48); MEAN CORPUSCULAR HEMOGLOBIN 34 pg (25-35); MEAN CORPUSCULAR HGB CONC 35 g/dL (31-37); MEAN CORPUSCULAR VOLUME 97 fL (79-100); MONO # 0.8 x10^3/uL (0.0-1.1); MONO % 9 % (0-9); NEUT # 5.3 x10^3/uL (1.8-7.7); NEUT % 58 % (31-73); PLATELET COUNT 353 x10^3/uL (140-400); RED BLOOD COUNT 4.24 x10^6/uL (3.50-5.40); RED CELL DISTRIBUTION WIDTH 12.8 % (11.5-14.5); WHITE BLOOD COUNT 9.2 x10^3/uL (4.0-11.0)
[2019-09-13 16:57] LABS: CALCIUM 8.4 mg/dL (8.5-10.1); CREATININE 1.1 mg/dL (0.6-1.0); POTASSIUM 3.7 mmol/L (3.5-5.1)
[2019-09-13 17:11] LABS: FREE T4 1.23 ng/dL (0.76-1.46); THYROID STIM HORMONE (TSH) 6.354 uIU/mL (0.358-3.74)
== END | disposition home or self-care (01) ==
LOC: LAB 15:55
PROVIDERS: ATTEND Family Medicine
DX: D72.829 Elevated white blood cell count, unspecified (principal)
CPT/HCPCS: 36415; 80048; 84439; 84443; 85025

== ENCOUNTER → 2020-02-29 | Outpatient (CLI) | payer OTHER ==
[2020-02-29 16:49] LABS: FREE T4 1.15 ng/dL (0.76-1.46); THYROID STIM HORMONE (TSH) 3.564 uIU/mL (0.358-3.74)
== END ==
LOC: LAB 15:24
PROVIDERS: ATTEND Family Medicine
DX: E03.9 Hypothyroidism, unspecified (principal)
CPT/HCPCS: 36415; 84439; 84443

== ENCOUNTER → 2020-10-23 | Outpatient (CLI) | payer OTHER ==
[~2020-10-23] MED LIST changes: +GADOTERATE 5 MMOL/10ML VIAL. IVP ONE; +IOHEXOL 300 MG/ML 50 ML VIAL. IJ ONE; +LIDOCAINE 1% Multi-Dose 20 ML VIAL. INJ ONE
--- NOTE | 2020-10-23 14:21 | RAD ---
EXAM: Left shoulder joint injection WITH Fluoroscopic guidance DATE: 10/23/2020 12:41 PM CLINICAL HISTORY: Reason: LEFT SHOULDER PAIN. / Spl. Instructions: / History: COMPARISON: None pertinent TECHNIQUE: The patient was informed of the indications and alternatives for this procedure as well as risks and benefits. No immediate contraindication identified. The patient provided informed, written consent. Laterality was confirmed by the entire team following a time out. Following initial Left shoulder joint localization, a suitable area was sterilely prepped and draped. Local anesthesia was administered with 1% xylocaine. With intermittent fluoroscopic observation, a 2 2-gauge spinal needle was advanced into the Left shoulder joint sheath/capsule with confirmation of i ntra-synovial position with infusion of less than 1 cc iodinated contrast. Subsequent infusion 12 mL solution containing 10 cc saline, 5 cc lidocaine 1%, 5 cc Isovue and 0.1 cc gadolinium. Hemostasis wi th local pressure. Local clinical exam negative for immediate complication. Patient informed re local potential signs or symptoms that may indicate need to return to ER/Ordering physician for further evaluation. Patient informed re precautionary measures after intra-synovial in jection of anesthetic. Patient informed re potential for short term increase local symptomatology due to steroid flare. Patient expressed understanding. Performing Physicians: Dr. Medardo Mendoza Blood Loss: 0 cc Total Fluoroscopy time: .2 minutes Total spot images taken: 0 IMPRESSION: Successful intra-synovial injection Left shoulder joint per clinical request. Electronically signed by: Arley Mendoza MD (10/23/2020 2:19 PM) [id number] CUSTOM FIELD 1
--- NOTE | 2020-10-23 16:54 | RAD ---
Examination: MRI left shoulder arthrogram HISTORY: History of left shoulder pain COMPARISON: 08/28/2019 TECHNIQUE: Multiplanar, multisequence MR imaging of the left shoulder after arthrogram injection. FINDINGS: The long head of the biceps tendon within the bicipital groove. The attachment of the long head the b iceps tendon to the superior labral anchor grossly appears intact. The attachment of the subscapulari s tendon, supraspinatus, infraspinatus tendon grossly appears intact. No evidence of rotator cuff tea r identified. There is mild increased T2 signal identified in the superior labrum probable small SLAP tear. Mild degenerative changes at the acromioclavicular joint. The muscle bulk grossly appears unremarkabl e. The acromion is type II. IMPRESSION: 1.No evidence of rotator cuff. 2. Probable small SLAP tear. Electronically signed by: Josh Barron MD (10/23/2020 4:52 PM) [id number]
== END | disposition home or self-care (01) ==
LOC: RAD 15:56
PROVIDERS: ATTEND Orthopaedic Surgery
DX: M25.512 Pain in left shoulder (principal); K21.9 Gastro-esophageal reflux disease without esophagitis; E03.9 Hypothyroidism, unspecified; Z90.710 Acquired absence of both cervix and uterus; Z98.890 Other specified postprocedural states; Z79.899 Other long term (current) drug therapy; Z88.1 Allergy status to other antibiotic agents; Z88.8 Allergy status to other drugs, medicaments and biological substances
CPT/HCPCS: 20610; 73222; 77002; A9575; J3490; Q9967

== ENCOUNTER 2021-06-29 17:11 | Observation (INO) | payer OTHER ==
[~2021-06-29] VITALS: Ht 162.6 cm; Wt 88.5 kg
[~2021-06-29 17:11] MED LIST changes: +CYCL10TA19 PO; -CYCL10TA2 PO; -GADOTERATE 5 MMOL/10ML VIAL. IVP ONE; -IOHEXOL 300 MG/ML 50 ML VIAL. IJ ONE; -LIDOCAINE 1% Multi-Dose 20 ML VIAL. INJ ONE
--- NOTE | 2021-06-29 17:56 | PHYS DOC ---
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 Patient states past pain started around 1230 today, and she has shortness of breath associated with it. Patient states that she saw Dr. Ramey approximately 2 weeks ago for episodes of palpitations, she had a Holter monitor placed at that time, she says around 1230 today she started experiencing chest pain that radiates to her back, she does have some shortness of air associated with it, no nausea or vomiting, no sweats. Patient was recently diagnosed with hypertension and she was started on amlodipine 5 mg and was recently increased to 10 mg, patient also was started on metoprolol 25 mg last week as well. Patient also reports that she has had lower extremity edema bilaterally noted. 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 [] Eyes: Denies change in visual acuity. [] HENT: Denies nasal congestion or sore throat. [] Respiratory: Denies cough or shortness of breath. [] Cardiovascular: chest pain or edema. [] GI: Denies abdominal pain, nausea, vomiting, bloody stools or diarrhea. [] : Denies dysuria. [] Musculoskeletal: Denies back pain or joint pain. [] Integument: Denies rash. [] Neurologic: Denies headache, focal weakness or sensory changes. [] Endocrine: Denies polyuria or polydipsia. [] Lymphatic: Denies swollen glands. [] Psychiatric: Denies depression or anxiety. 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) Heart Score: C/O Chest Pain: Yes HEART Score for Chest Pain: HEART Score for Chest Pain Response (Comments) Value History Moderately Suspicious 1 ECG Normal 0 Age >45 - < 65 1 Risk Factors 1 or 2 Risk Factors 1 Troponin < Normal Limit 0 Total 3 Risk Factors: Risk Factors: DM, Current or recent (<one month) smoker, HTN, HLP, family history of CAD, obesity. Risk Scores: Score 0 - 3: 2.5% MACE over next 6 weeks - Discharge Home Score 4 - 6: 20.3% MACE over next 6 weeks - Admit for Clinical Observation Score 7 - 10: 72.7% MACE over next 6 weeks - Early Invasive Strategies (ETIENNE WOEN APRN) Allergies: Allergies: Allergies Coded Allergies Type Severity Reaction Last Updated Verified codeine Allergy Intermediate 03/02/19 Yes povidone-iodine Allergy Intermediate 03/02/19 Yes soap Allergy Intermediate 03/02/19 Yes (ETIENNE OWEN APRN) Physical Exam: PE: Constitutional: Well developed, well nourished, moderate distress, non-toxic appearance. [] HENT: Normocephalic, atraumatic, bilateral external ears normal, oropharynx moist, no oral exudates, nose normal. [] Eyes: PERRLA, EOMI, conjunctiva normal, no discharge. [] Neck: Normal range of motion, no tenderness, supple, no stridor. [] Cardiovascular:Heart rate regular rhythm, no murmur [] Lungs & Thorax: Bilateral breath sounds clear to auscultation [] Abdomen: Bowel sounds normal, soft, no tenderness, no masses, no pulsatile masses. [] Skin: Warm, dry, no erythema, no rash. [] Back: No tenderness, no CVA tenderness. [] Extremities: No tenderness, no cyanosis, no clubbing, ROM intact, 1+ edema Neurologic: Alert and oriented X 3, normal motor function, normal sensory function, no focal deficits noted. [] Psychologic: Affect normal, judgement normal, mood normal. 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) Current Patient Data: Labs: Laboratory Tests Test 06/29/21 17:40 06/29/21 17:55 Urine Collection Type Void Urine Color (Auto) Colorless Urine Turbidity Clear Urine pH (Auto) 6.5 Urine Specific [place] 1.003 Urine Protein (Auto) Negative mg/dL Urine Glucose (Auto)(UA) Negative mg/dL Urine Ketones (Auto) Negative mg/dL Urine Blood (Auto) Negative Urine Nitrite (Auto) Negative Urine Bilirubin (Auto) Negative Urine Urobilinogen (Auto) Normal mg/dL Urine Leukocyte Esterase (Auto) Negative Urine RBC 0 /HPF Urine WBC 0 /HPF Urine Squamous Epithelial Cells Few /LPF Urine Bacteria Few /HPF Serum Test, Qualitative Negative White Blood Count 9.7 x10^3/uL Red Blood Count 4.73 x10^6/uL Hemoglobin 16.0 g/dL Hematocrit 44.8 % Mean Corpuscular Volume 95 fL Mean Corpuscular Hemoglobin 34 pg Mean Corpuscular Hemoglobin Concent 36 g/dL Red Cell Distribution Width 12.6 % Platelet Count 370 x10^3/uL Neutrophils (%) (Auto) 69 % Lymphocytes (%) (Auto) 20 % Monocytes (%) (Auto) 9 % Eosinophils (%) (Auto) 1 % Basophils (%) (Auto) 1 % Neutrophils # (Auto) 6.7 x10^3/uL Lymphocytes # (Auto) 1.9 x10^3/uL Monocytes # (Auto) 0.9 x10^3/uL Eosinophils # (Auto) 0.1 x10^3/uL Basophils # (Auto) 0.1 x10^3/uL Prothrombin Time 11.9 SEC Prothromb Time International Ratio 0.9 Activated Partial Thromboplast Time 27 SEC D-Dimer (Ying) < 0.27 ug/mlFEU Sodium Level 135 mmol/L Potassium Level 3.9 mmol/L Chloride Level 101 mmol/L Carbon Dioxide Level 25 mmol/L Anion Gap 9 Blood Urea Nitrogen 10 mg/dL Creatinine 1.1 mg/dL Estimated GFR (Cockcroft-Gault) 53.5 BUN/Creatinine Ratio 9 Glucose Level 96 mg/dL Calcium Level 9.5 mg/dL Total Bilirubin 0.6 mg/dL Aspartate Amino Transf (AST/SGOT) 38 U/L Alanine Aminotransferase (ALT/SGPT) 76 U/L Alkaline Phosphatase 66 U/L Troponin I High Sensitivity 8 ng/L Total Protein 7.8 g/dL Albumin 4.1 g/dL Albumin/Globulin Ratio 1.1 Lipase 125 U/L Current Medications Medications (Trade) Dose Ordered Sig/Michelle Route PRN Reason Start Time Stop Time Status Last Admin Dose Admin Fentanyl Citrate (Fentanyl 2ml Vial) 50 mcg 1X ONCE IVP 06/29/21 19:45 06/29/21 19:46 DC 06/29/21 19:37 Ondansetron HCl (Zofran) 4 mg 1X ONCE IVP 06/29/21 19:45 06/29/21 19:46 DC 06/29/21 19:36 Vital Signs: Vital Signs Date Time Temp Pulse Resp B/P (MAP) Pulse Ox O2 Delivery O2 Flow Rate FiO2 06/29/21 17:20 98.3 91 20 171/101 (124) 99 Room Air 98.3 (ETIENNE OWEN APRN) EKG: EKG: [] (ETIENNE OWEN APRN) Radiology/Procedures: Radiology/Procedures: EKG done at [address] Alatorre at 1725 showed sinus rhythm at a rate of 81 with a UT interval of 124 ms with a QTC of 456 ms no STEMI [] (ETIENNE OWEN APRN) Course & Med Decision Making: Course & Med Decision Making Pertinent Labs and Imaging studies reviewed. (See chart for details) 2058 patient states pain has lessened somewhat but is still there she still continues to have the stabbing feeling in her back, we still continue to wait for the ultrasound results I will dose the patient with some Toradol and another dose of fentanyl to help with her pain. I will sign out to Dr. Li regarding this patient. We will also draw a 3-hour troponin to trend her troponins to make sure this is not cardiac in nature. (ETIENNE OWEN APRN) Course & Med Decision Making Jose Angel -patient continues to have severe pain and nausea and has not been able to get comfortable despite multiple opioid medications. She does have transaminitis but no signs of acute cholecystitis or other acute GI process. She may have biliary dyskinesia. I recommended admission to the hospital given her intractable pain and nausea. Patient is agreeable to admission so she will be admitted to the [facility] floor in stable condition with cardiology and gastroenterology consults pending. (CON MCINTYRE DO) Savon Disclaimer: Dragon Disclaimer: This electronic medical record was generated, in whole or in part, using a voice recognition dictation system. (ETIENNE OWEN APRN) Departure Departure Impression: Primary Impression: Transaminitis Additional Impressions: Intractable abdominal pain Chest pain at rest Disposition: ADMITTED INPATIENT Admitting Physician: BIANCA Worthy) (CON MCINTYRE DO) Condition: STABLE Referrals: BAMBI UMANA MD (PCP) ETIENNE OWEN APRN June 29, 2021 17:56 CON MCINTYRE DO June 30, 2021 00:50
[2021-06-29 18:07] LABS: BASO # 0.1 x10^3/uL (0.0-0.2); BASO % 1 % (0-3); EOS # 0.1 x10^3/uL (0.0-0.7); EOS % 1 % (0-3); HEMATOCRIT 44.8 % (36.0-47.0); LYMPH # 1.9 x10^3/uL (1.0-4.8); LYMPH % 20 % (24-48); MEAN CORPUSCULAR HEMOGLOBIN 34 pg (25-35); MEAN CORPUSCULAR HGB CONC 36 g/dL (31-37); MEAN CORPUSCULAR VOLUME 95 fL (79-100); MONO # 0.9 x10^3/uL (0.0-1.1); MONO % 9 % (0-9); NEUT # 6.7 x10^3/uL (1.8-7.7); NEUT % 69 % (31-73); PLATELET COUNT 370 x10^3/uL (140-400); RED BLOOD COUNT 4.73 x10^6/uL (3.50-5.40); RED CELL DISTRIBUTION WIDTH 12.6 % (11.5-14.5); WHITE BLOOD COUNT 9.7 x10^3/uL (4.0-11.0)
[2021-06-29 18:11] LABS: PREG TEST PT QUAL NEGATIVE (NEG)
[2021-06-29 18:18] LABS: BACTERIA,URINE FEW /HPF (0-FEW); RBC,URINE 0 /HPF (0-2); WBC,URINE 0 /HPF (0-4)
[2021-06-29 18:19] LABS: CALCIUM 9.5 mg/dL (8.5-10.1); CREATININE 1.1 mg/dL (0.6-1.0); GFR 53.5; POTASSIUM 3.9 mmol/L (3.5-5.1)
[2021-06-29 18:21] LABS: PARTIAL THROMBOPLASTIN TIME 27 SEC (24-38); PROTHROMBIN TIME PATIENT 11.9 SEC (11.7-14.0)
[2021-06-29 18:27] LABS: ALBUMIN 4.1 g/dL (3.4-5.0); ALBUMIN/GLOBULIN RATIO 1.1 (1.0-1.7); TOTAL BILIRUBIN 0.6 mg/dL (0.2-1.0); TOTAL PROTEIN 7.8 g/dL (6.4-8.2)
[2021-06-29 18:32] LABS: D-DIMER < 0.27 ug/mlFEU (0.00-0.50)
[2021-06-29] MEDS ORDERED: ONDANSETRON PF 4 MG/2 ML VIAL. IVP ONE (19:45)
[2021-06-29] MEDS ORDERED: fentaNYL PF VIAL 100 MCG/2 ML VIAL IVP ONE ×2 (19:45→22:00)
[2021-06-29] MEDS ORDERED: KETOROLAC 15 MG/ML VIAL. IVP ONE (22:00)
[2021-06-30] VITALS (7 sets, daily range): BP systolic 86–169; BP diastolic 46–101
[2021-06-30] MEDS ORDERED: HYDROmorphone 2 MG/ML INJ. IVP ONE
[2021-06-30] MEDS ORDERED: ONDANSETRON PF 4 MG/2 ML VIAL. IVP PRN (00:45)
--- NOTE | 2021-06-30 01:03 | NUR ---
Pt summary report sent to [address] [place] [address] via tube system at 0106. Pt expected to go to inpatient room 418.
[2021-06-30] MEDS: IV NORMAL SALINE 1000ML BAG 1,000 ML IV SCH ×4 (02:43→18:49)
[2021-06-30] MEDS ORDERED: HYDR12.58 PO (03:21)
[2021-06-30] MEDS ORDERED: AMLO-187 PO (03:21)
[2021-06-30] MEDS ORDERED: MELA3TAB4 PO (03:21)
[2021-06-30] MEDS ORDERED: PANT40TA77 PO (03:21)
[2021-06-30] MEDS ORDERED: AMIT25TA PO (03:21)
[2021-06-30] MEDS ORDERED: CETI10TA74 PO (03:21)
[2021-06-30] MEDS ORDERED: LEVO125T5 PO (03:21)
[2021-06-30] MEDS ORDERED: TIZA-75 PO (03:21)
[2021-06-30] MEDS ORDERED: METO-239 PO (03:21)
[2021-06-30] MEDS: MORPHINE SULFATE 4 MG/ML INJ. IVP PRN ×5 (04:07→20:29)
--- NOTE | 2021-06-30 07:20 | PDOC2 ---
BEULAH ALVAREZ REGULATED PROGRAM MANAGER 06/30/21 0720: CARDIAC CONSULT DATE OF CONSULT Date of Consult DATE: 06/30/21 TIME: 07:14 REASON FOR CONSULT Reason for Consult: Chest pain REFERRING PHYSICIAN Referring Physician: Jose Angel SOURCE Source: Chart review, Patient HISTORY OF PRESENT ILLNESS HISTORY OF PRESENT ILLNESS This is a pleasant 46 yo female admitted for complains of abdominal and chest pain. Her abdominal pain is RUQ abd and has been on and off and finally worse yesterday after lunch. Her chest pain is more in her right scapular blade area and no nausea, vomiting no significnat SOA and no anterior chest pain. No recent falls or injury. No fever or chills. She has hx of palpitations hence she has MCOT and due to be turn in tomorrow. PAST MEDICAL HISTORY Cardiovascular: HTN, Other (palpitations) Heme/Onc: Cancer (thyroid) Renal/: UTI Endocrine: Hypothyroidism PAST SURGICAL HISTORY Past Surgical History: Arthroscopy (right shoulder), Cholecystectomy, C- Section, Hysterectomy, Other (breast reduction) FAMILY HISTORY Family History noncontributory to CV Family History: Hypertension SOCIAL HISTORY Smoke: Quit ALCOHOL: none Drugs: None Lives: with Family CURRENT MEDICATIONS CURRENT MEDICATIONS Current Medications Medications (Trade) Dose Ordered Sig/Michelle Route PRN Reason Start Time Stop Time Status Last Admin Dose Admin Fentanyl Citrate (Fentanyl 2ml Vial) 50 mcg 1X ONCE IVP 06/29/21 19:45 06/29/21 19:46 DC 06/29/21 19:37 Ondansetron HCl (Zofran) 4 mg 1X ONCE IVP 06/29/21 19:45 06/29/21 19:46 DC 06/29/21 19:36 Ketorolac Tromethamine (Toradol 15mg Vial) 15 mg 1X ONCE IVP 06/29/21 22:00 06/29/21 22:01 DC 06/29/21 21:59 Fentanyl Citrate (Fentanyl 2ml Vial) 50 mcg 1X ONCE IVP 06/29/21 22:00 06/29/21 22:01 DC 06/29/21 21:59 Hydromorphone HCl (Dilaudid) 1 mg 1X ONCE IVP 06/30/21 00:00 06/30/21 00:01 DC 06/30/21 00:00 Morphine Sulfate (Morphine Sulfate) 4 mg PRN Q2HR PRN IVP SEVERE PAIN 7-10 5/10/22 00:45 07/01/21 00:44 06/30/21 04:07 Sodium Chloride 1,000 ml @ 150 mls/hr Q6H40M IV 06/30/21 01:00 07/01/21 00:59 06/30/21 02:43 ALLERGIES ALLERGIES: Coded Allergies: codeine (Verified Allergy, Intermediate, 03/02/19) has had multiple scripts for NORCO as outpatient povidone-iodine (Verified Allergy, Intermediate, 03/02/19) soap (Verified Allergy, Intermediate, 03/02/19) ROS Review of System 14 point ROS evaluated with pertinent positives noted per HPI PHYSICAL EXAM General: Alert, Oriented X3, Cooperative, No acute distress HEENT: Atraumatic, Mucous membr. moist/pink Lungs: Clear to auscultation, Normal air movement Heart: Regular rate (SR), Normal S1, Normal S2, No murmurs Abdomen: Soft, Other (RUQ tenderness with palpation) Extremities: No cyanosis, No edema Skin: No breakdown, No significant lesion Neuro: Normal speech, Sensation intact Psych/Mental Status: Mental status NL, Mood NL MUSCULOSKELETAL: Full range of motion without pain VITALS/I&O VITALS/I&O: Vital Signs Date Time Temp Pulse Resp B/P (MAP) Pulse Ox O2 Delivery O2 Flow Rate FiO2 06/30/21 04:37 20 Room Air 06/30/21 03:07 98.4 73 131/78 (95) 98 98.4 I & O 06/29/21 06/29/21 06/30/21 15:00 23:00 07:00 Output Total 1 ml Balance -1 ml LABS Lab: Laboratory Tests Test 06/29/21 17:40 06/29/21 17:55 06/29/21 21:30 06/30/21 00:15 Urine Collection Type Void Urine Color (Auto) Colorless Urine Turbidity Clear Urine pH (Auto) 6.5 (<5.0-8.0) Urine Specific [place] 1.003 (1.000-1.030) Urine Protein (Auto) Negative mg/dL (Negative) Urine Glucose (Auto)(UA) Negative mg/dL (Negative) Urine Ketones (Auto) Negative mg/dL (Negative) Urine Blood (Auto) Negative (Negative) Urine Nitrite (Auto) Negative (Negative) Urine Bilirubin (Auto) Negative (Negative) Urine Urobilinogen (Auto) Normal mg/dL (Normal) Urine Leukocyte Esterase (Auto) Negative (Negative) Urine RBC 0 /HPF (0-2) Urine WBC 0 /HPF (0-4) Urine Squamous Epithelial Cells Few /LPF Urine Bacteria Few /HPF (0-FEW) Serum Test, Qualitative Negative (NEG) White Blood Count 9.7 x10^3/uL (4.0-11.0) Red Blood Count 4.73 x10^6/uL (3.50-5.40) Hemoglobin 16.0 g/dL (12.0-15.5) H Hematocrit 44.8 % (36.0-47.0) Mean Corpuscular Volume 95 fL (79-100) Mean Corpuscular Hemoglobin 34 pg (25-35) Mean Corpuscular Hemoglobin Concent 36 g/dL (31-37) Red Cell Distribution Width 12.6 % (11.5-14.5) Platelet Count 370 x10^3/uL (140-400) Neutrophils (%) (Auto) 69 % (31-73) Lymphocytes (%) (Auto) 20 % (24-48) L Monocytes (%) (Auto) 9 % (0-9) Eosinophils (%) (Auto) 1 % (0-3) Basophils (%) (Auto) 1 % (0-3) Neutrophils # (Auto) 6.7 x10^3/uL (1.8-7.7) Lymphocytes # (Auto) 1.9 x10^3/uL (1.0-4.8) Monocytes # (Auto) 0.9 x10^3/uL (0.0-1.1) Eosinophils # (Auto) 0.1 x10^3/uL (0.0-0.7) Basophils # (Auto) 0.1 x10^3/uL (0.0-0.2) Prothrombin Time 11.9 SEC (11.7-14.0) Prothrombin Time INR 0.9 (0.8-1.1) Activated Partial Thromboplast Time 27 SEC (24-38) D-Dimer (Ying) < 0.27 ug/mlFEU Sodium Level 135 mmol/L (136-145) L Potassium Level 3.9 mmol/L (3.5-5.1) Chloride Level 101 mmol/L (98-107) Carbon Dioxide Level 25 mmol/L (21-32) Anion Gap 9 (6-14) Blood Urea Nitrogen 10 mg/dL (7-20) Creatinine 1.1 mg/dL (0.6-1.0) H Estimated GFR (Cockcroft-Gault) 53.5 BUN/Creatinine Ratio 9 (6-20) Glucose Level 96 mg/dL (70-99) Calcium Level 9.5 mg/dL (8.5-10.1) Total Bilirubin 0.6 mg/dL (0.2-1.0) Aspartate Amino Transferase (AST) 38 U/L (15-37) H Alanine Aminotransferase (ALT) 76 U/L (14-59) H Alkaline Phosphatase 66 U/L (46-116) Troponin I High Sensitivity 8 ng/L (4-50) 10 ng/L (4-50) 10 ng/L (4-50) Total Protein 7.8 g/dL (6.4-8.2) Albumin 4.1 g/dL (3.4-5.0) Albumin/Globulin Ratio 1.1 (1.0-1.7) Lipase 125 U/L (73-393) Laboratory Tests 06/29/21 17:55 Laboratory Tests 06/29/21 17:55 ASSESSMENT/PLAN ASSESSMENT/PLAN 1. Atypical chest pain: suspect GI 2. Abdominal pain: possibly from GB issue 3. Hypertension: controlled. recently increase norvasc and added toprol 4. Hypothyroidsim: on replacement 5. Hx of palpitations: recent MCOT 6. Postmenopause 7. Obesity 8. HLP: new finding? diet modification and would consider low dose statin Recommendations 1. Consult GI, HIDA scan today 2. Treadmill MPI on Tuesday as scheduled 3. Continue ome BP regimen 4. MCOT to be completed tomorrow. Will review once available FLORENCE LOPEZ MD 07/01/21 1220: CARDIAC CONSULT ASSESSMENT/PLAN ASSESSMENT/PLAN Late entry for 06/30/2021 Patient seen and examined. Agree with above nurse practitioner note. BEULAH ALVAREZ APRN June 30, 2021 07:20 FLORENCE LOPEZ MD July 01, 2021 12:20
[2021-06-30 08:08] LABS: CHOLESTEROL/HDL RATIO 5.1
--- NOTE | 2021-06-30 09:18 | PDOC2 ---
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 Has had 2-3 episodes of stabbing pain in right scapula radiating around to RUQ. As outpt, quick resolution and associated w/ palpitations. Saw cardiology, given medications for HTN and holter monitor w/ plans for outpt stress test on Tuesday. Pain more intense yesterday and persistent. Began 30 min after eating lunch, possibly associated w/ some nausea and SOA (which she thinks may have been anxiety). She mentions plans for inpt echo w/ cardiology. H/o GERD controlled w/ PPI QD. No dysphagia, vomiting, diarrhea, constipation, hematochezia, melena, change in appetite, or weight loss. No previous EGD or colonoscopy. No GB, liver, pancreas, or PUD history. D/w hospitalist and cardiology. PMH: PMH: HTN, thyroid cancer, UTI , hysterectomy w/ right oophorectomy, breast reduction, thyroidectomy, right shoulder surgery FH: Family History: Cancer (uncle - colon), Other (mother - diverticular disease, several relatives with GB disease) Social History: Smoke: Quit ALCOHOL: rare Drugs: None ROS: GEN: Denies fevers, chills, sweats HEENT: Denies blurred vision, sore throat CV: +palpitations RESP: +SOA GI: Per HPI : Denies hematuria, dysuria ENDO: Denies weight changes NEURO: Denies confusion, dizziness MSK: Denies weakness, joint pain/swelling SKIN: Denies jaundice, pruritus Vitals: Vitals: Vital Signs Date Time Temp Pulse Resp B/P (MAP) Pulse Ox O2 Delivery O2 Flow Rate FiO2 06/30/21 08:32 16 Room Air 06/30/21 07:00 97.8 73 124/76 (92) 96 97.8 Labs: Labs: Laboratory Tests Test 06/29/21 17:40 06/29/21 17:55 06/29/21 21:30 06/30/21 00:15 Urine Collection Type Void Urine Color (Auto) Colorless Urine Turbidity Clear Urine pH (Auto) 6.5 (<5.0-8.0) Urine Specific [place] 1.003 (1.000-1.030) Urine Protein (Auto) Negative mg/dL (Negative) Urine Glucose (Auto)(UA) Negative mg/dL (Negative) Urine Ketones (Auto) Negative mg/dL (Negative) Urine Blood (Auto) Negative (Negative) Urine Nitrite (Auto) Negative (Negative) Urine Bilirubin (Auto) Negative (Negative) Urine Urobilinogen (Auto) Normal mg/dL (Normal) Urine Leukocyte Esterase (Auto) Negative (Negative) Urine RBC 0 /HPF (0-2) Urine WBC 0 /HPF (0-4) Urine Squamous Epithelial Cells Few /LPF Urine Bacteria Few /HPF (0-FEW) Serum Test, Qualitative Negative (NEG) White Blood Count 9.7 x10^3/uL (4.0-11.0) Red Blood Count 4.73 x10^6/uL (3.50-5.40) Hemoglobin 16.0 g/dL (12.0-15.5) Hematocrit 44.8 % (36.0-47.0) Mean Corpuscular Volume 95 fL (79-100) Mean Corpuscular Hemoglobin 34 pg (25-35) Mean Corpuscular Hemoglobin Concent 36 g/dL (31-37) Red Cell Distribution Width 12.6 % (11.5-14.5) Platelet Count 370 x10^3/uL (140-400) Neutrophils (%) (Auto) 69 % (31-73) Lymphocytes (%) (Auto) 20 % (24-48) Monocytes (%) (Auto) 9 % (0-9) Eosinophils (%) (Auto) 1 % (0-3) Basophils (%) (Auto) 1 % (0-3) Neutrophils # (Auto) 6.7 x10^3/uL (1.8-7.7) Lymphocytes # (Auto) 1.9 x10^3/uL (1.0-4.8) Monocytes # (Auto) 0.9 x10^3/uL (0.0-1.1) Eosinophils # (Auto) 0.1 x10^3/uL (0.0-0.7) Basophils # (Auto) 0.1 x10^3/uL (0.0-0.2) Prothrombin Time 11.9 SEC (11.7-14.0) Prothromb Time International Ratio 0.9 (0.8-1.1) Activated Partial Thromboplast Time 27 SEC (24-38) D-Dimer (Ying) < 0.27 ug/mlFEU Sodium Level 135 mmol/L (136-145) Potassium Level 3.9 mmol/L (3.5-5.1) Chloride Level 101 mmol/L (98-107) Carbon Dioxide Level 25 mmol/L (21-32) Anion Gap 9 (6-14) Blood Urea Nitrogen 10 mg/dL (7-20) Creatinine 1.1 mg/dL (0.6-1.0) Estimated GFR (Cockcroft-Gault) 53.5 BUN/Creatinine Ratio 9 (6-20) Glucose Level 96 mg/dL (70-99) Calcium Level 9.5 mg/dL (8.5-10.1) Total Bilirubin 0.6 mg/dL (0.2-1.0) Aspartate Amino Transf (AST/SGOT) 38 U/L (15-37) Alanine Aminotransferase (ALT/SGPT) 76 U/L (14-59) Alkaline Phosphatase 66 U/L (46-116) Troponin I High Sensitivity 8 ng/L (4-50) 10 ng/L (4-50) 10 ng/L (4-50) Total Protein 7.8 g/dL (6.4-8.2) Albumin 4.1 g/dL (3.4-5.0) Albumin/Globulin Ratio 1.1 (1.0-1.7) Lipase 125 U/L (73-393) Triglycerides Level 170 mg/dL (0-150) Cholesterol Level 240 mg/dL (0-200) LDL Cholesterol, Calculated 159 mg/dL (0-100) VLDL Cholesterol, Calculated 34 mg/dL (0-40) Non-HDL Cholesterol Calculated 193 mg/dL (0-129) HDL Cholesterol 47 mg/dL (40-60) Cholesterol/HDL Ratio 5.1 Thyroid Stimulating Hormone (TSH) 4.224 uIU/mL (0.358-3.74) Allergies: Coded Allergies: codeine (Verified Allergy, Intermediate, 03/02/19) has had multiple scripts for NORCO as outpatient povidone-iodine (Verified Allergy, Intermediate, 03/02/19) soap (Verified Allergy, Intermediate, 03/02/19) Medications: Current Medications Medications (Trade) Dose Ordered Sig/Michelle Route PRN Reason Start Time Stop Time Status Last Admin Dose Admin Fentanyl Citrate (Fentanyl 2ml Vial) 50 mcg 1X ONCE IVP 06/29/21 19:45 06/29/21 19:46 DC 06/29/21 19:37 Ondansetron HCl (Zofran) 4 mg 1X ONCE IVP 06/29/21 19:45 06/29/21 19:46 DC 06/29/21 19:36 Ketorolac Tromethamine (Toradol 15mg Vial) 15 mg 1X ONCE IVP 06/29/21 22:00 06/29/21 22:01 DC 06/29/21 21:59 Fentanyl Citrate (Fentanyl 2ml Vial) 50 mcg 1X ONCE IVP 06/29/21 22:00 06/29/21 22:01 DC 06/29/21 21:59 Hydromorphone HCl (Dilaudid) 1 mg 1X ONCE IVP 06/30/21 00:00 06/30/21 00:01 DC 06/30/21 00:00 Morphine Sulfate (Morphine Sulfate) 4 mg PRN Q2HR PRN IVP SEVERE PAIN 7-10 06/30/21 00:45 07/01/21 00:44 06/30/21 07:34 Sodium Chloride 1,000 ml @ 150 mls/hr Q6H40M IV 06/30/21 01:00 07/01/21 00:59 06/30/21 07:40 Imaging: Imaging: CXR 06/29 pending Abd US 06/29 hepatomegaly and hepatic steatosis, CBD 5mm, no biliary dilatation, normal gallbladder w/ questionable sludge PE: GEN: NAD, present HEENT: Atraumatic, PERRL LUNGS: CTAB HEART: RRR ABD: NABS, S/ND, mild discomfort right scapula tracking around under right ribs EXTREMITY: No edema SKIN: No rashes, no jaundice NEURO/PSYCH: A & O 3 A/P: A/P: Right shoulder/RUQ pain - recurrent w/ palpitations, SOA, nausea Mildly elevated AST and ALT Possible GB sludge, hepatomegaly/hepatic steatosis GERD - controlled w/ PPI CRC screen - none -- Checking HIDA. Continue PPI. Outpt EGD and screening colonoscopy when cardiology workup complete. SABINE VELA June 30, 2021 09:18
--- NOTE | 2021-06-30 09:30 | NUR ---
Received call from radiology that patient is scheduled for gallbladder scan and morphine received at 0734 has interaction and they will need to wait until 1330 to perform scan and patient needs to be NPO until scan is completed. Patient and spouse notified.
[2021-06-30] MEDS ORDERED: hydroCHLOROthiazide 12.5 MG TABLET PO SCH (10:00)
--- NOTE | 2021-06-30 12:22 | RAD ---
EXAMINATION: XR CHEST 1V CLINICAL HISTORY: Chest pain. EXAM DATE/TIME: 06/29/2021 7:07 PM COMPARISON: 06/13/2019 FINDINGS: Lines, Tubes, and Devices: None. Cardiomediastinal Silhouette: Normal heart size. Lungs and Pleura: Pulmonary hypoexpansion with mild patchy opacities in the right lower lung zone. No evidence of pleural effusion or pneumothorax. Bones and Soft Tissues: No acute osseous abnormality. Surgical clips projected over the midline base of the neck. IMPRESSION: Pulmonary hypoexpansion with mild right basilar patchy airspace disease. Electronically signed by: Norman Foreman DO (06/29/2021 8:39 PM) [facility]
--- NOTE | 2021-06-30 12:22 | HP ---
DATE OF SERVICE: 06/30/2021 ADMIT DATE: 06/30/2021 CHIEF COMPLAINT: Chest pain. 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 Basically, she presented with chest pain. I discussed the case with ER physician. We admitted the patient, we have consulted GI because I think she may have gallbladder symptoms as well. We have also consulted Cardiology. They are going to do an echo and an outpatient stress test. PAST MEDICAL HISTORY: GERD, sciatica, hysterectomy, , oophorectomy, thyroid cancer, D and C, breast reduction, right shoulder surgery. ALLERGIES: IODINE, CODEINE AND SOAP. FAMILY HISTORY: Diabetes. SOCIAL HISTORY: She does not drink, smoke or take drugs. MEDICATIONS: Reviewed, please refer to the MRAD. REVIEW OF SYSTEMS: GENERAL: No history of weight change, weakness or fevers. SKIN: No bruising, hair changes or rashes. EYES: No blurred, double or loss of vision. NOSE AND THROAT: No history of nosebleeds, hoarseness or sore throat. HEART: No history of palpitations, chest pain or shortness of breath on exertion. LUNGS: Denies cough, hemoptysis, wheezing or shortness of breath. GASTROINTESTINAL: Denies changes in appetite, nausea, vomiting, diarrhea or constipation. GENITOURINARY: No history of frequency, urgency, hesitancy or nocturia. NEUROLOGIC: Denies history of numbness, tingling, tremor or weakness. PSYCHIATRIC: No history of panic, anxiety or depression. ENDOCRINE: No history of heat or cold intolerance, polyuria or polydipsia. EXTREMITIES: Denies muscle weakness, joint pain, pain on walking or stiffness. PHYSICAL EXAMINATION: VITALS: Within normal limits and are stable. GENERAL: No apparent distress. Alert and oriented. HEENT: Normal cephalic atraumatic, external auditory canals are patent EYES: Extraocular muscles are intact, pupils are equally round and reactive to light and accommodation MUSCULOSKELETAL: Well developed, well nourished, good range of motion ENDOCRINE: No thyromegaly was palpated LYMPHATICS: No cervical chain or axillary nodes were noted HEMATOPOIETIC: No bruising NECK: Supple, no JVD, no thyromegaly was noted. LUNGS: Clear to auscultation in all lung matos without rhonchi or wheezing. HEART: RRR, S1, S2 present. Peripheral pulses intact, no obvious murmurs were noted. ABDOMEN: She still complains of some right upper quadrant pain with palpation. EXTREMITIES: Without any cyanosis, clubbing, or edema. Pedal pulses intact, Homans sign is negative. NEUROLOGIC: Normal speech, normal tone. A and O x 3, moves all extremities, no obvious focal deficits. PSYCHIATRIC: Normal affect, normal mood. Stable. SKIN: No ulcerations or rashes, good skin turgor, no jaundice. VASCULAR: Good capillary refill, neurovascular bundle appears to be intact. LABORATORY DATA: White count 9.7, BUN is 10, creatinine 1.1. INR is 0.9. Chest x-ray is pending. I tried to view it myself on the computer, but it would not pull up. Ultrasound of the abdomen results are pending. ASSESSMENT AND PLAN: Atypical chest pain, suspect this might be gallbladder related. We are awaiting the ultrasound of the gallbladder. I did consult GI. I spoke with the nurse practitioner, Claudette. For now, continue home meds, clear liquid diet, p.r.n. morphine, p.r.n. Zofran, DVT prophylaxis. [facility] [place] BECYK/mariano TID: [id number]
--- NOTE | 2021-06-30 12:22 | EKG ---
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
--- NOTE | 2021-06-30 12:23 | RAD ---
EXAMINATION: US ABDOMEN LIMITED 06/29/2021 7:21 PM INDICATION: Stabbing pain in the TECHNIQUE: Escalante scale and color Doppler ultrasound images of the right upper quadrant were obtained. COMPARISON: Abdominal ultrasound 06/13/[address] abdomen pelvis 07/28/2019. FINDINGS: Liver: The liver is enlarged measuring 21.5 cm in length. There is diffusely increased hepatic echoge nicity. No focal liver lesion. Gallbladder: The gallbladder is normal in caliber. No cholelithiasis. Questionable sludge in the ga llbladder lumen. The gallbladder wall is normal in thickness measuring 2 mm. Bile ducts: The common bile duct is normal measuring 5 mm. No intrahepatic biliary duct dilatation. Right kidney: The right kidney measures 10.7 x 5.1 x 4.5 cm. Normal cortical thickness and echogenic ity. No hydronephrosis. Other: The IVC and pancreas are mostly obscured by bowel gas. IMPRESSION: 1. Hepatomegaly and hepatic steatosis 2. Questionable sludge in the gallbladder. No cholelithiasis or evidence of acute cholecystitis. Electronically signed by: Ceyc Thompson MD (06/29/2021 9:12 PM) [facility]
[2021-06-30] MEDS ORDERED: SINCALIDE 1.7 MCG in IV NORMAL SALINE 50ML 30 ML IV ONE (13:00)
--- NOTE | 2021-06-30 14:33 | RAD ---
EXAM: HEPATOBILIARY SCINTIGRAPHY WITH GALLBLADDER EJECTION FRACTION CALCULATION. HISTORY: Right upper quadrant pain. TECHNIQUE: 5.5 mCi technetium-99m Choletec were administered intravenously and scintigraphic images o f the abdomen obtained. After filling of the gallbladder, 1.7 mcg of sincalide were infused and the g allbladder ejection fraction calculated. FINDINGS: There is prompt hepatic clearance of tracer from the blood pool. There is homogeneous distr ibution throughout the liver. There is normal filling of the gallbladder and clearance into the bilia ry tree and small bowel. The gallbladder ejection fraction is 25% (normal >35%). IMPRESSION: 1. Decreased gallbladder ejection fraction suggesting biliary dyskinesia. Electronically signed by: Génesis Carbajal MD (06/30/2021 2:31 PM) [id number]
[2021-06-30] MEDS: PANTOPRAZOLE IV PUSH 40 MG VIAL. IVP SCH (14:42)
[2021-06-30] MEDS: METOPROLOL SUCC 24HR ER 25 MG TAB.ER.24H. PO SCH (15:37)
[2021-06-30] MEDS: CETIRIZINE HCL 10 MG TABLET. PO SCH (20:29)
[2021-06-30] MEDS: AMITRIPTYLINE HCL 25 MG TABLET. PO SCH (20:29)
[2021-06-30] MEDS: tiZANidine 4 MG TABLET. PO SCH (20:29)
[2021-06-30] MEDS ORDERED: PANTOPRAZOLE 40 MG TABLET.DR. PO SCH (21:00)
[2021-07-01] VITALS (14 sets, daily range): BP systolic 90–136; BP diastolic 53–84
[2021-07-01] MEDS ORDERED: ACETAMINOPHEN 325 MG TABLET. PO PRN (03:30)
[2021-07-01] MEDS: LEVOTHYROXINE 125 MCG TABLET PO SCH (05:26)
[2021-07-01 07:25] LABS: BASO # 0.1 x10^3/uL (0.0-0.2); BASO % 1 % (0-3); EOS # 0.1 x10^3/uL (0.0-0.7); EOS % 2 % (0-3); HEMATOCRIT 39.7 % (36.0-47.0); LYMPH # 1.3 x10^3/uL (1.0-4.8); LYMPH % 24 % (24-48); MEAN CORPUSCULAR HEMOGLOBIN 34 pg (25-35); MEAN CORPUSCULAR HGB CONC 35 g/dL (31-37); MEAN CORPUSCULAR VOLUME 96 fL (79-100); MONO # 0.6 x10^3/uL (0.0-1.1); MONO % 10 % (0-9); NEUT # 3.6 x10^3/uL (1.8-7.7); NEUT % 64 % (31-73); PLATELET COUNT 278 x10^3/uL (140-400); RED BLOOD COUNT 4.16 x10^6/uL (3.50-5.40); RED CELL DISTRIBUTION WIDTH 12.3 % (11.5-14.5); WHITE BLOOD COUNT 5.6 x10^3/uL (4.0-11.0)
[2021-07-01 07:39] LABS: ALBUMIN 3.1 g/dL (3.4-5.0); ALBUMIN/GLOBULIN RATIO 0.9 (1.0-1.7); CALCIUM 8.7 mg/dL (8.5-10.1); CREATININE 0.7 mg/dL (0.6-1.0); GFR 90.1; POTASSIUM 3.5 mmol/L (3.5-5.1); TOTAL BILIRUBIN 0.8 mg/dL (0.2-1.0); TOTAL PROTEIN 6.5 g/dL (6.4-8.2)
--- NOTE | 2021-07-01 07:46 | PDOC2 ---
CONSULT Date of Consult Date of Consult DATE: 07/01/21 TIME: 07:43 History of Present Illness Reason for Visit: The patient is a 46 year old female who was admitted due to abdominal pain. The pain began 2 days ago and was located in the right back, shoulder blade, with radiation to the RUQ. She reports associated nausea and no vomiting. She believes the pain began about 30 min after eating. She has had similar less severe bouts of pain in the past which have resolved. Past Medical History Cardiovascular: HTN, Other (palpitations) Heme/Onc: Cancer (thyroid) Renal/: UTI Endocrine: Hypothyroidism Past Surgical History Past Surgical History: Arthroscopy (right shoulder), Cholecystectomy, C- Section, Hysterectomy, Other (breast reduction) Family History Family History: Hypertension Social History Quit ALCOHOL: rare Drugs: None Lives: with Family Current Problem List Problem List Problems Medical Problems: (1) Chest pain at rest Status: Acute (2) Intractable abdominal pain Status: Acute (3) Transaminitis Status: Acute Current Medications Current Medications Current Medications Fentanyl Citrate (Fentanyl 2ml Vial) 50 mcg 1X ONCE IVP Last administered on 06/29/21at 19:37; Start 06/29/21 at 19:45; Stop 06/29/21 at 19:46; Status DC Ondansetron HCl (Zofran) 4 mg 1X ONCE IVP Last administered on 06/29/21at 19:36; Start 06/29/21 at 19:45; Stop 06/29/21 at 19:46; Status DC Ketorolac Tromethamine (Toradol 15mg Vial) 15 mg 1X ONCE IVP Last administered on 06/29/21at 21:59; Start 06/29/21 at 22:00; Stop 06/29/21 at 22:01; Status DC Fentanyl Citrate (Fentanyl 2ml Vial) 50 mcg 1X ONCE IVP Last administered on 06/29/21at 21:59; Start 06/29/21 at 22:00; Stop 06/29/21 at 22:01; Status DC Hydromorphone HCl (Dilaudid) 1 mg 1X ONCE IVP Last administered on 06/30/21at 00:00; Start 06/30/21 at 00:00; Stop 06/30/21 at 00:01; Status DC Ondansetron HCl (Zofran) 4 mg PRN Q8HRS PRN IVP NAUSEA/VOMITING 1ST CHOICE Last administered on 06/30/21 18:49; Start 06/30/21 at 00:45; Stop 07/01/21 at 00:44; Status DC Morphine Sulfate (Morphine Sulfate) 4 mg PRN Q2HR PRN IVP SEVERE PAIN 7-10 Last administered on 06/30/21 20:29; Start 06/30/21 at 00:45; Stop 07/01/21 at 00:44; Status DC Sodium Chloride 1,000 ml @ 150 mls/hr Q6H40M IV Last administered on 06/30/21 18:49; Start 06/30/21 at 01:00; Stop 07/01/21 at 00:59; Status DC Amitriptyline HCl (Elavil) 25 mg QHS PO Last administered on 06/30/21 20:29; Start 06/30/21 at 21:00 Amlodipine Besylate (Norvasc) 10 mg DAILY PO Last administered on 06/30/21 15:38; Start 06/30/21 at 10:00 Cetirizine HCl (ZyrTEC) 10 mg HS PO Last administered on 06/30/21 20:29; Start 06/30/21 at 21:00 Hydrochlorothiazide (Microzide) 12.5 mg DAILY PO Last administered on 06/30/21 10:00; Start 06/30/21 at 10:00 Levothyroxine Sodium (Synthroid) 125 mcg DAILY06 PO Last administered on 07/01/21 05:26; Start 07/01/21 at 06:00 Metoprolol Succinate (Toprol Xl) 25 mg DAILY PO Last administered on 06/30/21 15:37; Start 06/30/21 at 10:00 Pantoprazole Sodium (Protonix) 40 mg HS PO ; Start 06/30/21 at 21:00; Status Cancel Tizanidine HCl (Zanaflex) 4 mg QHS PO Last administered on 06/30/21 20:29; Start 06/30/21 at 21:00 Pantoprazole Sodium (PROTONIX VIAL for IV PUSH) 40 mg DAILYAC IVP Last administered on 06/30/21 14:42; Start 06/30/21 at 09:30 Sincalide 1.7 mcg/ Sodium Chloride 30 ml @ 0 mls/hr 1X ONCE IV Last administered on 06/30/21at 14:14; Start 06/30/21 at 13:00; Stop 06/30/21 at 13:01; Status DC Acetaminophen (Tylenol) 650 mg PRN Q6HRS PRN PO MILD PAIN / TEMP > 100.3'F Last administered on 07/01/21at 03:36; Start 07/01/21 at 03:30 Active Scripts Active Reported Melatonin 3 Mg Tablet 1 Tab PO QHS Zyrtec (Cetirizine Hcl) 10 Mg Tablet 1 Tab PO HS Tizanidine Hcl 4 Mg Tablet 1 Tab PO QHS Metoprolol Succinate ( Xl ) (Metoprolol Succinate) 25 Mg Tab.er.24h 25 Mg PO DAILY Amlodipine Besylate 10 Mg Tablet 10 Mg PO DAILY Hydrochlorothiazide Tablet (Hydrochlorothiazide) 12.5 Mg Tablet 12.5 Mg PO DAILY Levothyroxine Sodium 125 Mcg Tablet 1 Tab PO DAILY Protonix (Pantoprazole Sodium) 40 Mg Tablet.dr 40 Mg PO HS Amitriptyline Hcl 25 Mg Tablet 1 Tab PO QHS Allergies Allergies: Coded Allergies: codeine (Verified Allergy, Intermediate, 03/02/19) has had multiple scripts for [place] as outpatient povidone-iodine (Verified Allergy, Intermediate, 03/02/19) soap (Verified Allergy, Intermediate, 03/02/19) ROS General: No: Chills, Night Sweats, Fatigue, Malaise, Appetite, Other PSYCHOLOGICAL ROS: No: Anxiety, Behavioral Disorder, Concentration difficultie, Decreased libido, Depression, Disorientation, Hallucinations, Hostility, Irritablity, Memory difficulties, Mood Swings, Obsessive thoughts, Physical abuse, Sexual abuse, Sleep disturbances, Suicidal ideation, Other Eyes: No Blurry vision, No Decreased vision, No Double vision, No Dry eyes, No Excessive tearing, No Eye Pain, No Itchy Eyes, No Loss of vision, No Photophobia, No Scotomata, No Uses contacts, No Uses glasses, No Other HEENT: No: Heacaches, Visual Changes, Hearing change, Nasal congestion, Nasal discharge, Oral lesions, Sinus pain, Sore Throat, Epistaxis, Sneezing, Snoring, Tinnitus, Vertigo, Vocal changes, Other ALLERGY AND IMMUNOLOGY: No: Hives, Insect Bite Sensitivity, Itchy/Watery Eyes, Nasal Congestion, Post Nasal Drip, Seasonal Allergies, Other Hematological and Lymphatic: No: Bleeding Problems, Blood Clots, Blood Transfusions, Brusing, Night Sweats, Pallor, Swollen Lymph Nodes, Other ENDOCRINE: No: Breast Changes, Galactorrhea, Hair Pattern Changes, Hot Flashes, Malaise/lethargy, Mood Swings, Palpitations, Polydipsia/polyuria, Skin Changes, Temperature Intolerance, Unexpected Weight Changes, Other Cardiovascular: No Chest Pain, No Palpitations, No Orthopnea, No Paroxysmal Noc. Dyspnea, No Edema, No Lt Headedness, No Other Gastrointestinal: Yes Nausea, Yes Abdominal Pain Genitourinary: No Dysuria, No Frequency, No Incontinence, No Hematuria, No Retention, No Discharge, No Urgency, No Pain, No Flank Pain, No Other, No , No , No , No , No , No , No Musculoskeletal: No Gait Disturbance, No Joint Pain, No Joint Stiffness, No Joint Swelling, No Muscle Pain, No Muscular Weakness, No Pain In:, No Swelling In:, No Other Neurological: No Behavorial Changes, No Bowel/Bladder ControlChng, No Confusion, No Dizziness, No Gait Disturbance, No Headaches, No Impaired Coord /balance, No Memory Loss, No Numbness/Tingling, No Seizures, No Speech Problems, No Tremors, No Visual Changes, No Weakness, No Other Skin: No Dry Skin, No Eczema, No Hair Changes, No Lumps, No Mole Changes, No Mottling, No Nail Changes, No Pruritus, No Rash, No Skin Lesion Changes, No Other, No Acne Physical Exam General: Alert, Oriented X3, Cooperative HEENT: Atraumatic Lungs: Clear to auscultation Abdomen: Soft (tender in RUQ with palpation) Extremities: No clubbing, No cyanosis Skin: No rashes Neuro: Normal speech, Strength at 5/5 X4 ext Psych/Mental Status: Mental status NL Vitals VITALS Vital Signs Date Time Temp Pulse Resp B/P (MAP) Pulse Ox O2 Delivery O2 Flow Rate FiO2 07/01/21 03:06 98.0 64 18 99/57 (71) 98 Room Air 98.0 Labs Labs Laboratory Tests Test 06/29/21 17:40 06/29/21 17:55 06/29/21 21:30 06/30/21 00:15 Urine Collection Type Void Urine Color (Auto) Colorless Urine Turbidity Clear Urine pH (Auto) 6.5 (<5.0-8.0) Urine Specific [place] 1.003 (1.000-1.030) Urine Protein (Auto) Negative mg/dL (Negative) Urine Glucose (Auto)(UA) Negative mg/dL (Negative) Urine Ketones (Auto) Negative mg/dL (Negative) Urine Blood (Auto) Negative (Negative) Urine Nitrite (Auto) Negative (Negative) Urine Bilirubin (Auto) Negative (Negative) Urine Urobilinogen (Auto) Normal mg/dL (Normal) Urine Leukocyte Esterase (Auto) Negative (Negative) Urine RBC 0 /HPF (0-2) Urine WBC 0 /HPF (0-4) Urine Squamous Epithelial Cells Few /LPF Urine Bacteria Few /HPF (0-FEW) Serum Test, Qualitative Negative (NEG) White Blood Count 9.7 x10^3/uL (4.0-11.0) Red Blood Count 4.73 x10^6/uL (3.50-5.40) Hemoglobin 16.0 g/dL (12.0-15.5) Hematocrit 44.8 % (36.0-47.0) Mean Corpuscular Volume 95 fL (79-100) Mean Corpuscular Hemoglobin 34 pg (25-35) Mean Corpuscular Hemoglobin Concent 36 g/dL (31-37) Red Cell Distribution Width 12.6 % (11.5-14.5) Platelet Count 370 x10^3/uL (140-400) Neutrophils (%) (Auto) 69 % (31-73) Lymphocytes (%) (Auto) 20 % (24-48) Monocytes (%) (Auto) 9 % (0-9) Eosinophils (%) (Auto) 1 % (0-3) Basophils (%) (Auto) 1 % (0-3) Neutrophils # (Auto) 6.7 x10^3/uL (1.8-7.7) Lymphocytes # (Auto) 1.9 x10^3/uL (1.0-4.8) Monocytes # (Auto) 0.9 x10^3/uL (0.0-1.1) Eosinophils # (Auto) 0.1 x10^3/uL (0.0-0.7) Basophils # (Auto) 0.1 x10^3/uL (0.0-0.2) Prothrombin Time 11.9 SEC (11.7-14.0) Prothromb Time International Ratio 0.9 (0.8-1.1) Activated Partial Thromboplast Time 27 SEC (24-38) D-Dimer (Ying) < 0.27 ug/mlFEU Sodium Level 135 mmol/L (136-145) Potassium Level 3.9 mmol/L (3.5-5.1) Chloride Level 101 mmol/L (98-107) Carbon Dioxide Level 25 mmol/L (21-32) Anion Gap 9 (6-14) Blood Urea Nitrogen 10 mg/dL (7-20) Creatinine 1.1 mg/dL (0.6-1.0) Estimated GFR (Cockcroft-Gault) 53.5 BUN/Creatinine Ratio 9 (6-20) Glucose Level 96 mg/dL (70-99) Calcium Level 9.5 mg/dL (8.5-10.1) Total Bilirubin 0.6 mg/dL (0.2-1.0) Aspartate Amino Transf (AST/SGOT) 38 U/L (15-37) Alanine Aminotransferase (ALT/SGPT) 76 U/L (14-59) Alkaline Phosphatase 66 U/L (46-116) Troponin I High Sensitivity 8 ng/L (4-50) 10 ng/L (4-50) 10 ng/L (4-50) Total Protein 7.8 g/dL (6.4-8.2) Albumin 4.1 g/dL (3.4-5.0) Albumin/Globulin Ratio 1.1 (1.0-1.7) Lipase 125 U/L (73-393) Triglycerides Level 170 mg/dL (0-150) Cholesterol Level 240 mg/dL (0-200) LDL Cholesterol, Calculated 159 mg/dL (0-100) VLDL Cholesterol, Calculated 34 mg/dL (0-40) Non-HDL Cholesterol Calculated 193 mg/dL (0-129) HDL Cholesterol 47 mg/dL (40-60) Cholesterol/HDL Ratio 5.1 Thyroid Stimulating Hormone (TSH) 4.224 uIU/mL (0.358-3.74) Test 07/01/21 06:10 White Blood Count 5.6 x10^3/uL (4.0-11.0) Red Blood Count 4.16 x10^6/uL (3.50-5.40) Hemoglobin 14.0 g/dL (12.0-15.5) Hematocrit 39.7 % (36.0-47.0) Mean Corpuscular Volume 96 fL (79-100) Mean Corpuscular Hemoglobin 34 pg (25-35) Mean Corpuscular Hemoglobin Concent 35 g/dL (31-37) Red Cell Distribution Width 12.3 % (11.5-14.5) Platelet Count 278 x10^3/uL (140-400) Neutrophils (%) (Auto) 64 % (31-73) Lymphocytes (%) (Auto) 24 % (24-48) Monocytes (%) (Auto) 10 % (0-9) Eosinophils (%) (Auto) 2 % (0-3) Basophils (%) (Auto) 1 % (0-3) Neutrophils # (Auto) 3.6 x10^3/uL (1.8-7.7) Lymphocytes # (Auto) 1.3 x10^3/uL (1.0-4.8) Monocytes # (Auto) 0.6 x10^3/uL (0.0-1.1) Eosinophils # (Auto) 0.1 x10^3/uL (0.0-0.7) Basophils # (Auto) 0.1 x10^3/uL (0.0-0.2) Sodium Level 138 mmol/L (136-145) Potassium Level 3.5 mmol/L (3.5-5.1) Chloride Level 101 mmol/L (98-107) Carbon Dioxide Level 28 mmol/L (21-32) Anion Gap 9 (6-14) Blood Urea Nitrogen 7 mg/dL (7-20) Creatinine 0.7 mg/dL (0.6-1.0) Estimated GFR (Cockcroft-Gault) 90.1 BUN/Creatinine Ratio 10 (6-20) Glucose Level 76 mg/dL (70-99) Calcium Level 8.7 mg/dL (8.5-10.1) Total Bilirubin 0.8 mg/dL (0.2-1.0) Aspartate Amino Transf (AST/SGOT) 31 U/L (15-37) Alanine Aminotransferase (ALT/SGPT) 59 U/L (14-59) Alkaline Phosphatase 48 U/L (46-116) Total Protein 6.5 g/dL (6.4-8.2) Albumin 3.1 g/dL (3.4-5.0) Albumin/Globulin Ratio 0.9 (1.0-1.7) Laboratory Tests Test 07/01/21 06:10 White Blood Count 5.6 x10^3/uL (4.0-11.0) Red Blood Count 4.16 x10^6/uL (3.50-5.40) Hemoglobin 14.0 g/dL (12.0-15.5) Hematocrit 39.7 % (36.0-47.0) Mean Corpuscular Volume 96 fL (79-100) Mean Corpuscular Hemoglobin 34 pg (25-35) Mean Corpuscular Hemoglobin Concent 35 g/dL (31-37) Red Cell Distribution Width 12.3 % (11.5-14.5) Platelet Count 278 x10^3/uL (140-400) Neutrophils (%) (Auto) 64 % (31-73) Lymphocytes (%) (Auto) 24 % (24-48) Monocytes (%) (Auto) 10 % (0-9) Eosinophils (%) (Auto) 2 % (0-3) Basophils (%) (Auto) 1 % (0-3) Neutrophils # (Auto) 3.6 x10^3/uL (1.8-7.7) Lymphocytes # (Auto) 1.3 x10^3/uL (1.0-4.8) Monocytes # (Auto) 0.6 x10^3/uL (0.0-1.1) Eosinophils # (Auto) 0.1 x10^3/uL (0.0-0.7) Basophils # (Auto) 0.1 x10^3/uL (0.0-0.2) Sodium Level 138 mmol/L (136-145) Potassium Level 3.5 mmol/L (3.5-5.1) Chloride Level 101 mmol/L (98-107) Carbon Dioxide Level 28 mmol/L (21-32) Anion Gap 9 (6-14) Blood Urea Nitrogen 7 mg/dL (7-20) Creatinine 0.7 mg/dL (0.6-1.0) Estimated GFR (Cockcroft-Gault) 90.1 BUN/Creatinine Ratio 10 (6-20) Glucose Level 76 mg/dL (70-99) Calcium Level 8.7 mg/dL (8.5-10.1) Total Bilirubin 0.8 mg/dL (0.2-1.0) Aspartate Amino Transf (AST/SGOT) 31 U/L (15-37) Alanine Aminotransferase (ALT/SGPT) 59 U/L (14-59) Alkaline Phosphatase 48 U/L (46-116) Total Protein 6.5 g/dL (6.4-8.2) Albumin 3.1 g/dL (3.4-5.0) Albumin/Globulin Ratio 0.9 (1.0-1.7) Images Images PIPIDA: GB EF 25% Assessment/Plan Assessment/Plan RUQ, back pain, low gallbladder EF. Recommend lap gabi. The details and risks of surgery were discussed with the patient. She understands and would like to proceed. ROEL WHITE MD July 01, 2021 07:46
[2021-07-01] MEDS: PANTOPRAZOLE IV PUSH 40 MG VIAL. IVP SCH (07:57)
--- NOTE | 2021-07-01 08:29 | NUR ---
Verbal order received from Dr Martinez for morphine iv 2mg every 2 hours for pain, order readback and reviewed.
[2021-07-01] MEDS: MORPHINE SULFATE 2 MG/ML INJ. IVP PRN ×4 (08:40→19:03)
[2021-07-01] MEDS: METOPROLOL SUCC 24HR ER 25 MG TAB.ER.24H. PO SCH (08:42)
--- NOTE | 2021-07-01 09:49 | PDOC ---
Date of Service: DATE: 07/01/21 TIME: 09:45 Subjective: Subjective: Feels a little better, going for cholecystectomy today. Objective: Vital Signs: Vital Signs Date Time Temp Pulse Resp B/P (MAP) Pulse Ox O2 Delivery O2 Flow Rate FiO2 07/01/21 08:40 Room Air 07/01/21 07:00 98.4 66 20 130/84 (99) 93 98.4 Labs: Laboratory Tests Test 07/01/21 06:10 07/01/21 08:00 White Blood Count 5.6 x10^3/uL Red Blood Count 4.16 x10^6/uL Hemoglobin 14.0 g/dL Hematocrit 39.7 % Mean Corpuscular Volume 96 fL Mean Corpuscular Hemoglobin 34 pg Mean Corpuscular Hemoglobin Concent 35 g/dL Red Cell Distribution Width 12.3 % Platelet Count 278 x10^3/uL Neutrophils (%) (Auto) 64 % Lymphocytes (%) (Auto) 24 % Monocytes (%) (Auto) 10 % Eosinophils (%) (Auto) 2 % Basophils (%) (Auto) 1 % Neutrophils # (Auto) 3.6 x10^3/uL Lymphocytes # (Auto) 1.3 x10^3/uL Monocytes # (Auto) 0.6 x10^3/uL Eosinophils # (Auto) 0.1 x10^3/uL Basophils # (Auto) 0.1 x10^3/uL Sodium Level 138 mmol/L Potassium Level 3.5 mmol/L Chloride Level 101 mmol/L Carbon Dioxide Level 28 mmol/L Anion Gap 9 Blood Urea Nitrogen 7 mg/dL Creatinine 0.7 mg/dL Estimated GFR (Cockcroft-Gault) 90.1 BUN/Creatinine Ratio 10 Glucose Level 76 mg/dL Calcium Level 8.7 mg/dL Total Bilirubin 0.8 mg/dL Aspartate Amino Transf (AST/SGOT) 31 U/L Alanine Aminotransferase (ALT/SGPT) 59 U/L Alkaline Phosphatase 48 U/L Total Protein 6.5 g/dL Albumin 3.1 g/dL Albumin/Globulin Ratio 0.9 SARS-CoV-2 Antigen (Rapid) Negative Imaging: HIDA IMPRESSION: 1. Decreased gallbladder ejection fraction suggesting biliary dyskinesia. PE: GEN: NAD LUNGS: CTAB HEART: RRR ABD: soft, mildly tender RUQ NEURO/PSYCH: A & O 3 A/P: Right shoulder/RUQ pain Mildly elevated AST and ALT - resolved Abnormal GB EF GERD - controlled w/ PPI -- Plans for cholecystectomy w/ IOC today - will follow. Continue PPI, plan for outpt EGD and colonoscopy. Justicifation of Admission Dx: Justifications for Admission: Justification of Admission Dx: Yes SABINE VELA July 01, 2021 09:49
--- NOTE | 2021-07-01 10:07 | PDOC ---
SHAHNAZ MENDOZA [employer] 07/01/21 1007: CARDIO Progress Notes Date and Time Date of Service 07/01/21 Time of Evaluation 1000 Subjective Subjective: No Chest Pain, No shortness of breath, No Palpitations, Other (c/o abdominal pain) Vitals Vitals Vital Signs Date Time Temp Pulse Resp B/P (MAP) Pulse Ox O2 Delivery O2 Flow Rate FiO2 07/01/21 08:40 Room Air 07/01/21 07:00 98.4 66 20 130/84 (99) 93 98.4 Weight Weight [ ] Input and Output Intake and Output Intake and Output 07/01/21 07:00 Intake Total 480 ml Balance 480 ml Intake Oral 480 ml # Voids 3 Laboratory Labs Laboratory Tests Test 07/01/21 06:10 07/01/21 08:00 White Blood Count 5.6 x10^3/uL (4.0-11.0) Red Blood Count 4.16 x10^6/uL (3.50-5.40) Hemoglobin 14.0 g/dL (12.0-15.5) Hematocrit 39.7 % (36.0-47.0) Mean Corpuscular Volume 96 fL (79-100) Mean Corpuscular Hemoglobin 34 pg (25-35) Mean Corpuscular Hemoglobin Concent 35 g/dL (31-37) Red Cell Distribution Width 12.3 % (11.5-14.5) Platelet Count 278 x10^3/uL (140-400) Neutrophils (%) (Auto) 64 % (31-73) Lymphocytes (%) (Auto) 24 % (24-48) Monocytes (%) (Auto) 10 % (0-9) Eosinophils (%) (Auto) 2 % (0-3) Basophils (%) (Auto) 1 % (0-3) Neutrophils # (Auto) 3.6 x10^3/uL (1.8-7.7) Lymphocytes # (Auto) 1.3 x10^3/uL (1.0-4.8) Monocytes # (Auto) 0.6 x10^3/uL (0.0-1.1) Eosinophils # (Auto) 0.1 x10^3/uL (0.0-0.7) Basophils # (Auto) 0.1 x10^3/uL (0.0-0.2) Sodium Level 138 mmol/L (136-145) Potassium Level 3.5 mmol/L (3.5-5.1) Chloride Level 101 mmol/L (98-107) Carbon Dioxide Level 28 mmol/L (21-32) Anion Gap 9 (6-14) Blood Urea Nitrogen 7 mg/dL (7-20) Creatinine 0.7 mg/dL (0.6-1.0) Estimated GFR (Cockcroft-Gault) 90.1 BUN/Creatinine Ratio 10 (6-20) Glucose Level 76 mg/dL (70-99) Calcium Level 8.7 mg/dL (8.5-10.1) Total Bilirubin 0.8 mg/dL (0.2-1.0) Aspartate Amino Transf (AST/SGOT) 31 U/L (15-37) Alanine Aminotransferase (ALT/SGPT) 59 U/L (14-59) Alkaline Phosphatase 48 U/L (46-116) Total Protein 6.5 g/dL (6.4-8.2) Albumin 3.1 g/dL (3.4-5.0) Albumin/Globulin Ratio 0.9 (1.0-1.7) SARS-CoV-2 Antigen (Rapid) Negative (NEGATIVE) Physical Exam HEENT: Neck Supple W Full Motion Chest: Symmetric LUNGS: Clear to Auscultation Heart: RRR Abdomen: Soft N/T Extremities: No Edema Neurology: alert, oriented, follow commands Assessment Assessment 1. Atypical chest pain; AMI ruled out 2. Abdominal pain: HIDA with low gallbladder EF. Plans for lap gabi today. 3. Hypertension: controlled 4. Hypothyroidsim: on replacement 5. Hx of palpitations: MCOT complete today 6. Postmenopause 7. Obesity 8. HLP Recommendations Will cancel treadmill MPI that was scheduled on Tuesday Continue home BP regimen Follow GS recommendations Follow up in our office with Dr. Ramey as arranged Justicifation of Admission Dx: Justifications for Admission: Justification of Admission Dx: Yes FLORENCE RAMEY MD 07/02/21 0801: SHAHNAZ MENDOZA APRN July 01, 2021 10:07 FLORENCE RAMEY MD July 02, 2021 08:01
--- NOTE | 2021-07-01 11:23 | PDOC ---
[employer] PROGRESS NOTE Date of Service DOS: DATE: 07/01/21 TIME: : Chief Complaint Chief Complaint Intractable abdominal pain Intractable nausea Cholestasis GERD, sciatica, hysterectomy, , oophorectomy, thyroid cancer, D and C, breast reduction, right shoulder surgery. History of Present Illness History of Present Illness 07/01/2021 Patient seen exam Discussed with RN Discussed with case management Chart reviewed She is scheduled to go for lap gabi later today Vitals/I&O Vitals/I&O: Vital Signs Date Time Temp Pulse Resp B/P (MAP) Pulse Ox O2 Delivery O2 Flow Rate FiO2 07/01/21 08:40 Room Air 07/01/21 07:00 98.4 66 20 130/84 (99) 93 98.4 I & O 06/30/21 06/30/21 07/01/21 15:00 23:00 07:00 Intake Total 480 ml Balance 480 ml Physical Exam General: Alert, Oriented X3, Cooperative Heart: Regular rate (SR), Normal S1, Normal S2, No murmurs Abdomen: Soft (tender in RUQ with palpation) Extremities: No clubbing, No cyanosis Skin: No rashes Labs Labs: Laboratory Tests Test 07/01/21 06:10 07/01/21 08:00 White Blood Count 5.6 x10^3/uL (4.0-11.0) Red Blood Count 4.16 x10^6/uL (3.50-5.40) Hemoglobin 14.0 g/dL (12.0-15.5) Hematocrit 39.7 % (36.0-47.0) Mean Corpuscular Volume 96 fL (79-100) Mean Corpuscular Hemoglobin 34 pg (25-35) Mean Corpuscular Hemoglobin Concent 35 g/dL (31-37) Red Cell Distribution Width 12.3 % (11.5-14.5) Platelet Count 278 x10^3/uL (140-400) Neutrophils (%) (Auto) 64 % (31-73) Lymphocytes (%) (Auto) 24 % (24-48) Monocytes (%) (Auto) 10 % (0-9) Eosinophils (%) (Auto) 2 % (0-3) Basophils (%) (Auto) 1 % (0-3) Neutrophils # (Auto) 3.6 x10^3/uL (1.8-7.7) Lymphocytes # (Auto) 1.3 x10^3/uL (1.0-4.8) Monocytes # (Auto) 0.6 x10^3/uL (0.0-1.1) Eosinophils # (Auto) 0.1 x10^3/uL (0.0-0.7) Basophils # (Auto) 0.1 x10^3/uL (0.0-0.2) Sodium Level 138 mmol/L (136-145) Potassium Level 3.5 mmol/L (3.5-5.1) Chloride Level 101 mmol/L (98-107) Carbon Dioxide Level 28 mmol/L (21-32) Anion Gap 9 (6-14) Blood Urea Nitrogen 7 mg/dL (7-20) Creatinine 0.7 mg/dL (0.6-1.0) Estimated GFR (Cockcroft-Gault) 90.1 BUN/Creatinine Ratio 10 (6-20) Glucose Level 76 mg/dL (70-99) Calcium Level 8.7 mg/dL (8.5-10.1) Total Bilirubin 0.8 mg/dL (0.2-1.0) Aspartate Amino Transf (AST/SGOT) 31 U/L (15-37) Alanine Aminotransferase (ALT/SGPT) 59 U/L (14-59) Alkaline Phosphatase 48 U/L (46-116) Total Protein 6.5 g/dL (6.4-8.2) Albumin 3.1 g/dL (3.4-5.0) Albumin/Globulin Ratio 0.9 (1.0-1.7) SARS-CoV-2 Antigen (Rapid) Negative (NEGATIVE) Assessment and Plan Assessmemt and Plan Problems Medical Problems: (1) Chest pain at rest Status: Acute (2) Intractable abdominal pain Status: Acute (3) Transaminitis Status: Acute Intractable abdominal pain Intractable nausea Cholestasis GERD, sciatica, hysterectomy, , oophorectomy, thyroid cancer, D and C, breast reduction, right shoulder surgery. Plan She is going for lap gabi later today Postoperatively she will need wound care As needed pain meds As needed Zofran Trend labs Hope to discharge tomorrow if tolerating her diet Comment Review of Relevant I have reviewed the following items jesus (where applicable) has been applied. Medications: Current Medications Medications (Trade) Dose Ordered Sig/Michelle Route PRN Reason Start Time Stop Time Status Last Admin Dose Admin Amitriptyline HCl (Elavil) 25 mg QHS PO 06/30/21 21:00 06/30/21 20:29 Cetirizine HCl (ZyrTEC) 10 mg HS PO 06/30/21 21:00 06/30/21 20:29 Levothyroxine Sodium (Synthroid) 125 mcg DAILY06 PO 07/01/21 06:00 07/01/21 05:26 Tizanidine HCl (Zanaflex) 4 mg QHS PO 06/30/21 21:00 06/30/21 20:29 Sincalide 1.7 mcg/ Sodium Chloride 30 ml @ 0 mls/hr 1X ONCE IV 06/30/21 13:00 06/30/21 13:01 DC 06/30/21 14:14 Acetaminophen (Tylenol) 650 mg PRN Q6HRS PRN PO MILD PAIN / TEMP > 100.3'F 07/01/21 03:30 07/01/21 03:36 Morphine Sulfate (Morphine Sulfate) 2 mg PRN Q2HR PRN IVP PAIN 07/01/21 08:30 07/01/21 08:40 Justifications for Admission Other Justification JOSE OCONNOR III DO July 01, 2021 11:23
--- NOTE | 2021-07-01 11:55 | NUR ---
pt requesting medication for nausea, verbal order received for ondansetron 4mg every 6 hours. order readback and verified.
[2021-07-01] MEDS ORDERED: ONDANSETRON PF 4 MG/2 ML VIAL. IVP PRN (12:00)
[2021-07-01] MEDS ORDERED: BUPIVACAINE-EPI 0.5% 30 ML VIAL KIT. ONE (16:21)
[2021-07-01] MEDS ORDERED: SURGICEL HEMOSTAT 4X8 EACH. ONE (16:21)
[2021-07-01] MEDS ORDERED: IOHEXOL 300 MG/ML 50 ML VIAL. ONE (16:21)
[2021-07-01] MEDS ORDERED: ROCURONIUM 50 MG/5 ML VIAL. ONE (16:37)
[2021-07-01] MEDS ORDERED: fentaNYL PF VIAL 100 MCG/2 ML VIAL ONE ×2 (16:37→18:37)
[2021-07-01] MEDS ORDERED: DEXAMETHASONE SOD PHOS 4 MG/ML VIAL ONE (16:43)
[2021-07-01] MEDS ORDERED: SEVOFLURANE 61 TO 120 MINUTES. IH ONE (16:43)
[2021-07-01] MEDS ORDERED: PROPOFOL 10 MG/ML (20ML) VIAL. IV ONE (16:43)
[2021-07-01] MEDS ORDERED: ONDANSETRON PF 4 MG/2 ML VIAL. ONE (16:43)
[2021-07-01] MEDS ORDERED: LIDOCAINE 2% PF 5 ML VIAL. ONE (16:43)
[2021-07-01] MEDS ORDERED: GLYCOPYRROLATE 1 MG/5 ML VIAL. ONE (17:11)
[2021-07-01] MEDS ORDERED: MIDAZOLAM HCL/PF 2 MG/2 ML VIAL. ONE (17:24)
[2021-07-01] MEDS ORDERED: KETOROLAC 30 MG/ML VIAL. ONE (18:04)
[2021-07-01] MEDS ORDERED: NEOSTIGMINE METHYLSULFATE 5 MG/5 ML SYRINGE. ONE (18:05)
[2021-07-01] MEDS ORDERED: fentaNYL PF VIAL 100 MCG/2 ML VIAL IVP PRN (18:15)
[2021-07-01] MEDS ORDERED: IV RINGERS,LACTATED 1000ML 1,000 ML IV SCH (18:15)
--- NOTE | 2021-07-01 18:22 | PDOC4 ---
Operative Note Operative Note Operative Note: Preoperative Diagnosis: Biliary dyskinesia Postoperative Diagnosis: Same Procedure: Laparoscopic cholecystectomy with intraoperative cholangiogram Surgeons: Kirk Straight Knife Machine Cutter: Maida Hernandez MS 3 Anesthesia: Gen. Estimated Blood Loss: 10 mL Specimen: Gallbladder to pathology Drains: None Complications: None Indications: The patient is a 46-year-old female who was admitted due to abdominal pain. Her evaluation is consistent with biliary dyskinesia. Surgical treatment was offered by means of a laparoscopic cholecystectomy. The risks of surgery were discussed which include bleeding, infection, bile duct injury, bile leak, pain, the potential for additional surgeries or procedures. The patient understands and would like to proceed. Description: The patient was taken to the operating room and laid supine on the operating table. General anesthesia was performed. The abdomen was prepped with ChloraPrep and draped in a standard surgical fashion. A small infraumbilical incision was made with a scalpel. The Veress needle was then inserted and a pneumoperitoneum was then created. A 5 mm trocar was then inserted and the laparoscope was introduced. In the upper midabdomen a 5 mm trocar was inserted and in the right upper quadrant two 2.3 mm mini lap graspers were inserted. The gallbladder was retracted cephalad. The cystic duct was dissected free from surrounding tissues. One clip was placed on the duct near the gallbladder junction. An opening was made in the duct and a cholangiocatheter placed within and secured with a clip. Using contrast dye and fluoroscopy an intraoperative cholangiogram was performed that appeared unremarkable. The clip and catheter were then withdrawn. Three clips were placed on the cystic duct and it was divided. The cystic artery was then identified, dissected free, doubly clipped and divided as well. The gallbladder was then mobilized away from the liver with cautery. The umbilical 5 millimeter trocar was exchanged for an 11 millimeter trocar. The gallbladder was then placed in an endoscopic bag and extracted at the umbilical trocar site. The fascia there was closed with an 0 Vicryl suture and infiltrated with 0.5% marcaine. All blood and irrigation fluid was suctioned and hemostasis was good. The remaining ports were removed and the pneumoperitoneum was relieved. The skin incisions were closed using 4-0 Monocryl suture. Steri-Strips and dressings were then applied. The patient tolerated the procedure well and was sent to the recovery room in stable condition. At the end of the case all counts were correct. ROEL WHITE MD July 01, 2021 18:22
[2021-07-01] MEDS ORDERED: PROCHLORPERAZINE 10 MG/2 ML VIAL. ONE (18:38)
[2021-07-01] MEDS ORDERED: MORPHINE SULFATE 2 MG/ML INJ. ONE (18:38)
[2021-07-01] MEDS: PROCHLORPERAZINE 10 MG/2 ML VIAL. IVP PRN ×2 (18:52→19:19)
[2021-07-01] MEDS: fentaNYL PF VIAL 100 MCG/2 ML VIAL IVP PRN ×2 (18:53→19:02)
[2021-07-01] MEDS ORDERED: HYDROmorphone 2 MG/ML INJ. ONE (19:17)
[2021-07-01] MEDS: HYDROmorphone 2 MG/ML INJ. IVP PRN ×2 (19:20→19:35)
[2021-07-01] MEDS: CETIRIZINE HCL 10 MG TABLET. PO SCH (20:58)
[2021-07-01] MEDS: AMITRIPTYLINE HCL 25 MG TABLET. PO SCH (20:58)
[2021-07-01] MEDS: tiZANidine 4 MG TABLET. PO SCH (20:59)
[2021-07-01] MEDS ORDERED: ATORVASTATIN CALCIUM 10 MG TABLET. PO SCH (21:00)
[2021-07-01] MEDS: oxyCODONE/APAP 5/325 1 TAB TABLET PO PRN (21:54)
[2021-07-02 03:00] VITALS: BP 138/83
[2021-07-02] MEDS: oxyCODONE/APAP 5/325 1 TAB TABLET PO PRN ×3 (03:39→13:35)
[2021-07-02] MEDS: LEVOTHYROXINE 125 MCG TABLET PO SCH (06:19)
[2021-07-02 07:00] VITALS: BP 120/75
--- NOTE | 2021-07-02 08:21 | RAD ---
EXAM: Intraoperative cholangiogram HISTORY: Pain. COMPARISON: None. FINDINGS: 4 fluoroscopic images were obtained during an intraoperative cholangiogram there is contras t opacification of the biliary tree and proximal small bowel. No retained stone or stricture is seen. The total fluoroscopy time is not included with the images. IMPRESSION: Intraoperative cholangiogram without evidence of a retained stone. Electronically signed by: Kalyn Edgar MD (07/02/2021 8:18 AM) [id number]
--- NOTE | 2021-07-02 08:34 | PDOC ---
SURGICAL PROGRESS NOTE DATE: 07/02/21 TIME: 08:32 Subjective improved preop symptoms so far tolerating diet pain managed Vital Signs Vital Signs Date Time Temp Pulse Resp B/P (MAP) Pulse Ox O2 Delivery O2 Flow Rate FiO2 07/02/21 07:00 97.5 83 18 120/75 (90) 91 Room Air 97.5 07/01/21 18:54 10.0 I&O Intake and Output 07/02/21 07:00 Intake Total 3350 ml Output Total 10 ml Balance 3340 ml Intake Oral 1800 ml IV Total 1550 ml Estimated Blood Loss 10 ml # Voids 4 General: Alert, Oriented X3, Cooperative Abdomen: Soft, Other (lap dressings dry) Labs Laboratory Tests Test 07/01/21 06:10 07/01/21 08:00 White Blood Count 5.6 x10^3/uL (4.0-11.0) Red Blood Count 4.16 x10^6/uL (3.50-5.40) Hemoglobin 14.0 g/dL (12.0-15.5) Hematocrit 39.7 % (36.0-47.0) Mean Corpuscular Volume 96 fL (79-100) Mean Corpuscular Hemoglobin 34 pg (25-35) Mean Corpuscular Hemoglobin Concent 35 g/dL (31-37) Red Cell Distribution Width 12.3 % (11.5-14.5) Platelet Count 278 x10^3/uL (140-400) Neutrophils (%) (Auto) 64 % (31-73) Lymphocytes (%) (Auto) 24 % (24-48) Monocytes (%) (Auto) 10 % (0-9) Eosinophils (%) (Auto) 2 % (0-3) Basophils (%) (Auto) 1 % (0-3) Neutrophils # (Auto) 3.6 x10^3/uL (1.8-7.7) Lymphocytes # (Auto) 1.3 x10^3/uL (1.0-4.8) Monocytes # (Auto) 0.6 x10^3/uL (0.0-1.1) Eosinophils # (Auto) 0.1 x10^3/uL (0.0-0.7) Basophils # (Auto) 0.1 x10^3/uL (0.0-0.2) Sodium Level 138 mmol/L (136-145) Potassium Level 3.5 mmol/L (3.5-5.1) Chloride Level 101 mmol/L (98-107) Carbon Dioxide Level 28 mmol/L (21-32) Anion Gap 9 (6-14) Blood Urea Nitrogen 7 mg/dL (7-20) Creatinine 0.7 mg/dL (0.6-1.0) Estimated GFR (Cockcroft-Gault) 90.1 BUN/Creatinine Ratio 10 (6-20) Glucose Level 76 mg/dL (70-99) Calcium Level 8.7 mg/dL (8.5-10.1) Total Bilirubin 0.8 mg/dL (0.2-1.0) Aspartate Amino Transf (AST/SGOT) 31 U/L (15-37) Alanine Aminotransferase (ALT/SGPT) 59 U/L (14-59) Alkaline Phosphatase 48 U/L (46-116) Total Protein 6.5 g/dL (6.4-8.2) Albumin 3.1 g/dL (3.4-5.0) Albumin/Globulin Ratio 0.9 (1.0-1.7) Coronavirus (COVID-19)(PCR) Not detected (NOT DETECTD) SARS-CoV-2 Antigen (Rapid) Negative (NEGATIVE) Problem List Problems Medical Problems: (1) Chest pain at rest Status: Acute (2) Intractable abdominal pain Status: Acute (3) Transaminitis Status: Acute Assessment/Plan s/p gabi ok to hi home FU 2 weeks Justicifation of Admission Dx: Justifications for Admission: Justification of Admission Dx: Yes MARIAM STERLING MEDICA[employer] ELIGIBILITY SPECIALIST July 02, 2021 08:34
[2021-07-02] MEDS ORDERED: OXYC1TAB15 PO (08:36)
[2021-07-02] MEDS: PANTOPRAZOLE IV PUSH 40 MG VIAL. IVP SCH (08:56)
[2021-07-02] MEDS ORDERED: ATOR10TA60 PO (09:35)
--- NOTE | 2021-07-02 09:41 | PDOC ---
Date of Service: DATE: 07/02/21 TIME: 09:39 Subjective: Subjective: Feels better, mild incisional tenderness. Tolerating diet, passing flatus. Says she gets to go home today. Objective: Vital Signs: Vital Signs Date Time Temp Pulse Resp B/P (MAP) Pulse Ox O2 Delivery O2 Flow Rate FiO2 07/02/21 07:00 97.5 83 18 120/75 (90) 91 Room Air 97.5 07/01/21 18:54 10.0 PE: GEN: NAD LUNGS: CTAB HEART: RRR ABD: S/ND/NT NEURO/PSYCH: A & O 3 A/P: S/p cholecystectomy -- DC per primary/surgery. F/u w/ cardiology for stress test as planned. Continue PPI for h/o GERD. F/u for non-emergent outpt scopes for h/o GERD and CRC screen - our office will call to arrange. Justicifation of Admission Dx: Justifications for Admission: Justification of Admission Dx: Yes SABINE VELA July 02, 2021 09:41
--- NOTE | 2021-07-02 09:41 | PDOC ---
CARDIO Progress Notes Date and Time Date of Service 07/02/21 Time of Evaluation 0940 Subjective Subjective: No Chest Pain, No shortness of breath, No Palpitations, Other (c/o abdominal pain) Vitals Vitals Vital Signs Date Time Temp Pulse Resp B/P (MAP) Pulse Ox O2 Delivery O2 Flow Rate FiO2 07/02/21 07:00 97.5 83 18 120/75 (90) 91 Room Air 97.5 07/01/21 18:54 10.0 Weight Weight [ ] Input and Output Intake and Output Intake and Output 07/02/21 07:00 Intake Total 3350 ml Output Total 10 ml Balance 3340 ml Intake Oral 1800 ml IV Total 1550 ml Estimated Blood Loss 10 ml # Voids 4 Physical Exam HEENT: Neck Supple W Full Motion Chest: Symmetric LUNGS: Clear to Auscultation Heart: RRR Abdomen: Other (soft) Extremities: No Edema Neurology: alert, oriented, follow commands Assessment Assessment 1. Atypical chest pain; AMI ruled out 2. Abdominal pain: HIDA with low gallbladder EF. s/p lap gabi 07/01 3. Hypertension: controlled 4. Hypothyroidsim: on replacement 5. Hx of palpitations: MCOT complete today 6. Postmenopause 7. Obesity 8. HLP Recommendations Continue current BP regimen Follow up in our office with Dr. Ramey as arranged Justicifation of Admission Dx: Justifications for Admission: Justification of Admission Dx: Yes SHAHNAZ MENDOZA APRN July 02, 2021 09:41
[2021-07-02 11:00] VITALS: BP 114/64
[2021-07-02] MEDS: METOPROLOL SUCC 24HR ER 25 MG TAB.ER.24H. PO SCH (11:38)
[2021-07-02 11:39] VITALS: BP 120/75
--- NOTE | 2021-07-02 14:11 | NUR ---
patient discharged to home with family. Taken out by wheelchair
--- NOTE | 2021-07-07 07:46 | PATHOLOGY ---
[facility] Accession Number: [id number] . 01 Material submitted: . gallbladder - GALLBLADDER . 01 Clinical history: . CHOLELITHIASIS, CHEST PAIN . 02 Diagnosis: Gallbladder, laparoscopic cholecystectomy: - Polypoid cholesterolosis, focal. - Chronic cholecystitis. (HERNANDEZM:fide; 07/06/2021) [facility] 07/06/2021 1458 Local . 02 Comment: There are no calculi identified within the gallbladder lumen or specimen container. There is no evidence of malignancy. (HERNANDEZM:fide; 07/06/2021) . 02 Electronically signed: . Regulo Marcus MD, Pathologist NPI- [id number] . 01 Gross description: . Fixative: Formalin Labeled: Gallbladder Specimen received: Intact Dimensions: 8.7 x 2.9 x 2.6 cm Lymph node: Not identified Serosa: Escalante-blue, smooth and dusky Calculi: none within the specimen or specimen container Mucosa: Brown-green and velvety with moderate olivas stippling Average wall thickness: 0.3 cm Abnormalities: three soft, olivas polypoid tissues (ranging from 0.3 x 0.2 x 0.1 cm to 0.4 x 0.4 x 0.2 cm) are identified within the bile. The previous attachment sites cannot be identified A1-A2: Gallbladder, represented to include the entirety of the polyps submitted in A2 ([facility]; 07/03/2021) DKA/DKA 07/03/2021 1554 Local . 02 Pathologist provided ICD-10: K80.10 . 02 CPT . 377957 Specimen Comment: A courtesy copy of this report has been sent to [phone], [phone] Specimen Comment: [id number], Specimen Comment: Report sent to , DR UMANA / DR JOHNSTON Specimen Comment: A duplicate report has been generated due to demographic updates. Performed at: [address] [facility], [place] [id number] MD Jaylon Donaldson MD Phone: [phone] Performed at: [facility] [address] [place], [place] [id number] MD Regulo Marcus MD Phone: [phone]
== END 2021-07-02 14:10 | disposition home or self-care (01) ==
LOC: ER 17:11 → INTOOBSV 06-30 00:20 → 4 NORTH 06-30 00:20
PROVIDERS: ADMIT Internal Medicine; ATTEND Internal Medicine
DX: R07.89 Other chest pain (principal); Z20.822 Contact with and (suspected) exposure to COVID-19; I10 Essential (primary) hypertension; K21.9 Gastro-esophageal reflux disease without esophagitis; C73 Malignant neoplasm of thyroid gland; E66.9 Obesity, unspecified; E78.5 Hyperlipidemia, unspecified; E89.0 Postprocedural hypothyroidism; K82.8 Other specified diseases of gallbladder; K83.1 Obstruction of bile duct; M54.30 Sciatica, unspecified side; N39.0 Urinary tract infection, site not specified; M25.511 Pain in right shoulder; R74.01 Elevation of levels of liver transaminase levels; R00.2 Palpitations; Z85.850 Personal history of malignant neoplasm of thyroid; Z90.710 Acquired absence of both cervix and uterus; Z90.721 Acquired absence of ovaries, unilateral; Z98.891 History of uterine scar from previous surgery; Z79.899 Other long term (current) drug therapy; Z98.890 Other specified postprocedural states; Z78.0 Asymptomatic menopausal state; Z87.891 Personal history of nicotine dependence; Z68.33 Body mass index [BMI] 33.0-33.9, adult
CPT/HCPCS: 36415; 71045; 74300; 76705; 78227; 80053; 80061; 81001; 83690; 84443; 84484; 84703; 85025; 85379; 85610; 85730; 87426; 88304; 93005; 96365; 96375; 96376; A4213; A4314; A4657; A4930; A9537; C1887; C9113; G0378; G0379; J0690; J0780; J1100; J1170; J1885; J2250; J2270; J2405; J2704; J2710; J2805; J3010; J3490; J7030; J7120; Q9967; U0003; 99285-25